=== PATIENT | male | born 1960 | race Caucasian/White ===

== ENCOUNTER 2020-12-02 12:13 | Observation (INO) ==
[2020-12-02] MEDS ORDERED: MIDAZOLAM HCL 1 MG/ML 2ML VIAL ONE ×2 (12:16→15:52)
[2020-12-02] MEDS ORDERED: niCARdipine HCL INJ 2.5 MG/ML 10 ML AMP ONE (12:16)
[2020-12-02] MEDS ORDERED: HEPARIN (PORCINE) 1000 UNIT/ML 10 ML (CATH LAB USE ONLY) ONE ×2 (12:16→15:35)
[2020-12-02] MEDS ORDERED: fentaNYL citrate 100 MCG/2 ML VIAL ONE (12:16)
[2020-12-02] MEDS ORDERED: NITROGLYCERIN/D5W 100MCG/ML 20ML SYR ONE (12:17)
[2020-12-02] MEDS ORDERED: ASPIRIN CHEW 324 MG PO STA (12:19)
--- NOTE | 2020-12-02 12:31 | Emergency Department Note ---
Impression & Plan Unstable angina pectoris, Chest pain, Non-sustained ventricular tachycardia ED Provider Note NAME: CASPER MIGUEL AGE: 60 SEX: M : 1960 ARRIVES VIA: Ambulance INFORMANT: Patient, prehospital personnel ED PROVIDER(S): Dougie Schilling DO CHIEF COMPLAINT: Chest pain HPI: The patient is a 60-year-old male who presented to the emergency department for an evaluation of chest discomfort. The patient states that he started having symptoms initially in September of this year. The patient states that he has been having exertional symptoms while he is doing aerobic activities. The patient denies having any chest pain at this time. He went to see his family doctor who set him up for a stress test. During the initial part of the stress echo the patient started having ectopy and other symptoms. He had nonsustained ventricular tachycardia. He received doses of Lopressor and was sent directly to the emergency department for further evaluation. The patient states he has no chest pain at this time. He states his symptoms are moderate to severe especially with any exertion. The patient is starting to do more and more aero bic activity and start monitoring his heart rate. He is noticed when he does exertional activity and his heart rate goes over 120 bpm is when he starts to notice symptoms. He has a history of high blood pressure as well as high cholesterol. He is being treated for both of these. The patient states he does not have a history of early coronary artery disease but his father did have a heart attack in his 80s. The patient denies having any fever or cough. He denies having any lower extremity swelling. ROS: See above HPI for pertinent positives & negatives. A total of 10 systems reviewed and were otherwise negative. PAST MEDICAL HISTORY: See Below PAST SURGICAL HISTORY: See Below FAMILY HISTORY: See Below SOCIAL HISTORY: See Below HOME MEDICATIONS: See Below ALLERGIES: See Below VITALS: See Below PHYSICAL EXAMINATION: GENERAL: The patient is awake and alert. The patient is very anxious appearing. EYES: The conjunctivae are clear. The pupils are round and reactive. EARS, NOSE, MOUTH AND THROAT: The nose is without any evidence of any deformity. Mucous membranes are moist. Tongue is midline. NECK: The neck is nontender and supple. RESPIRATORY: Normal respiratory effort is noted there is no evidence of wheezing rhonchi or rales CARDIOVASCULAR: Regular rate and rhythm noted there no murmurs rubs or gallops normal S1 normal S2. GASTROINTESTINAL: The abdomen is soft. Abdomen is nontender. MUSCULOSKELETAL/EXTREMITIES: There is no evidence of gross deformity full range of motion is noted in the hips and shoulders. SKIN: There is no obvious evidence of any rash. There are no petechiae, pallor or cyanosis noted. NEUROLOGIC: Patient is awake alert and oriented x 3. MEDICAL DECISION MAKING: The patient is a 60-year-old male who presented to the emergency department for an evaluation of chest pain. The patient started noticing a few months ago that he was having exertional chest pain. He describes it as a burning sensation into his neck. He is very in tune with his body and does significant aerobic activities. He started to notice it all the time and when his heart rate would get over a certain level he would develop the symptoms. He went to see his primary care physician and this was worrisome for coronary syndrome. For this reason he was scheduled for a stress test. He was about to have the stress test today when he started having ventricular ectopy and nonsustained ventricular t achycardia. For this reason the patient was sent to the emergency department immediately by ambulance and was evaluated by the [employer] supervisor. At this time the patient has no symptoms. He is normal sinus rhythm on the monitor. EKG shows no ischemic changes right now. He was treated with aspirin in the emergency department. He was reevaluated multiple times and was placed on the panel monitor. He was felt to be a good candidate for interventional cardiology assessment. He was agreeable with the plan. Triage Nursing notes reviewed. Prior medical records reviewed Vital Signs: reviewed and remarkable for no significant abnormalities Differential diagnosis: Cardiac ischemia, aortic dissection, pulmonary embolism, pneumothorax, pneumonia, pericarditis, myocarditis, esophageal rupture, GERD, cholecystitis, pancreatitis, musculoskeletal, as well as other pathologies. ER treatment provided: See below Diagnostics interpreted by me: ECG: EKG was obtained in the emergency department. My interpretation is normal sinus rhythm at 86 bpm. There is no ectopy. There is no acute ST segment abnormalities noted. This was compared to a tracing from November 172020. No significant changes were noted. Cardiac Monitoring: An order was placed for continuous cardiac monitoring. The monitor shows a rate of 58 beats with sinus bradycardia rhythm. Laboratory studies: As stated above and show below. Imaging studies: See below Consultation(s): 1230: Patient is being evaluated by Dr. Bee for possible cardiac catheterization. Past Med/Surg History Medical History (Updated 12/02/20 @ 17:13 by Dougie Schilling DO) Chronic kidney disease Hyperlipidemia Hypertension Family History Denies family history of Kidney disease Social History Smoking Status: Never smoker Hx Alcohol Use: No Hx Substance Use: No Preferred Language: Korean Homicide Detective Required: No Beliefs That Will Affect Care: None marital status: Current Living Situation: Spouse Current Living Situation Comment: Moved [place] 2019 for senior care & renovate home current occupational status: retired current occupation: retired 2017 from [employer] Other Information That Helps Us Care for You: No other: 3 children. One biologic. Two adopted from [facility] Feels Safe at Home: Yes Safety Concerns: Feels Safe At This Time Assistive Devices: None Allergies Allergies Allergy/AdvReac Type Severity Reaction Status Date / Time No Known Drug Allergies Allergy Unknown Verified 12/02/20 13:27 Home Meds Home Medications Medication Instructions Recorded Confirmed aspirin 81 mg tablet,delayed 81 mg PO HS 10/15/19 12/02/20 release atorvastatin 10 mg tablet 10 mg PO HS tab 10/15/19 12/02/20 fluticasone propionate 50 1 sprays INTNAS DAILY PRN 10/15/19 12/02/20 mcg/actuation nasal spray,suspension valsartan 80 mg tablet 80 mg PO DAILY 10/15/19 12/02/20 diltiazem HCl 240 mg 240 mg PO HS 10/22/19 12/02/20 capsule,extended release 24 hr phenylephrine HCl 10 mg tablet 10 mg PO UD PRN tab 10/22/19 12/02/20 lactobacillus combination no.4 0 mmu cells PO DAILY 12/02/20 12/02/20 [Probiotic] pantoprazole 40 mg PO DAILY 12/02/20 12/02/20 Results & Data (ED) Vital Signs Vital Signs - 24 hr 12/02/20 12:36 12/02/20 12:52 12/02/20 13:00 Temperature 37.3 C Temperature Source Oral Pulse Rate 83 85 73 Pulse Rate from SpO2 Sensor 84 72 Respiratory Rate 18 18 20 Blood Pressure 179/101 H 171/98 H 170/97 H Blood Pressure Mean 127 122 121 Pulse Oximetry 98 100 99 Oxygen Delivery Method Room Air Sepsis Recent Fever Within 48 Hours No Sepsis New/Unexplained Change in Mental Status N/A Sepsis Action Taken by Nursing No Action Required 12/02/20 13:30 12/02/20 14:00 Temperature Temperature Source Pulse Rate 68 70 Pulse Rate from SpO2 Sensor 69 70 Respiratory Rate 18 18 Blood Pressure 157/90 H 137/90 Blood Pressure Mean 112 105 Pulse Oximetry 99 98 Oxygen Delivery Method Sepsis Recent Fever Within 48 Hours Sepsis New/Unexplained Change in Mental Status Sepsis Action Taken by [facility] Medications Current Medication List: was personally reviewed by me Laboratory Data Attestation: I reviewed the patient's lab results. Result diagrams: 12/02/20 12:32 12/02/20 12:32 Lab Results 12/02/20 12/02/20 12/02/20 Range/Units 12:28 12:28 12:32 WBC 5.30 (4.8-10.8) K/uL RBC 4.75 (4.7-6.1) M/uL Hgb 14.6 (14.0-18.0) g/dL POC Hgb (14.0-18.0) g/dl Hct 42.9 (42-52) % POC Hct (42-52) % MCV 90.3 (80-100) fL MCH 30.7 (25-34) pg MCHC 34.0 (32-36) g/dL RDW Std Deviation 40.9 (36.4-46.3) fL RDW Coeff of Aristides 12.4 (11.5-14.5) % Plt Count 223 (130-400) K/uL MPV 9.5 (7.4-10.4) fL Immature Gran % (Auto) 0.0 % Neut % (Auto) 60.8 % Lymph % (Auto) 26.0 % Tift % (Auto) 9.4 % Eos % (Auto) 3.4 % Baso % (Auto) 0.4 % Neut # (Auto) 3.22 (1.4-6.5) K/uL Lymph # (Auto) 1.38 (1.2-3.4) K/uL Tift # (Auto) 0.50 (0.11-0.59) K/uL Eos # (Auto) 0.18 (0-0.5) K/uL Baso # (Auto) 0.02 (0-0.2) K/uL Immature Gran # (Auto) 0.00 (0.00-0.02) K/uL PT (9.0-12.0) Seconds INR (0.9-1.1) APTT (21.0-31.0) Seconds PTT Ratio POC Sodium (135-144) mmol/L Sodium (136-145) mmol/L POC Potassium (3.3-5.0) mmol/L Potassium (3.5-5.1) mmol/L POC Chloride (101-112) mmol/L Chloride (98-107) mmol/L Carbon Dioxide (21-32) mmol/L POC Total CO2 (24-31) mmol/L Anion Gap (3-11) POC Anion Gap (16-25) mmol/L POC BUN (7-18) mg/dl BUN (7-18) mg/dl Creatinine (0.6-1.4) mg/dl POC Creatinine (0.6-1.3) mg/dl Est Cr Clr Drug Dosing ml/min Est GFR ( Amer) Est GFR (Non-Af Amer) BUN/Creatinine Ratio (10-20) Glucose (70-99) mg/dl POC Glucose (other) (70-99) mg/dl Calcium (8.5-10.1) mg/dl POC Ioniz Calcium Anabella (1.12-1.32) mmol/l Total Bilirubin (0.2-1) mg/dl AST (15-37) U/L ALT (12-78) U/L Alkaline Phosphatase (45-117) U/L Troponin I (0-0.045) ng/ml Total Protein (6.4-8.2) gm/dl Albumin (3.4-5.0) gm/dl Globulin (2.5-4.0) gm/dl Albumin/Globulin Ratio (0.9-2) Triglycerides (0-150) mg/dl Cholesterol (0-200) mg/dl LDL Cholesterol Direct mg/dl LDL Cholesterol, Calc VLDL Cholesterol, Calc mg/dl HDL Cholesterol mg/dl Cholesterol/HDL Ratio Lipase (73-393) U/L COVID-19 Eval Order CovFluRsv at [facility] SARS-CoV-2 (PCR) NEGATIVE (Negative) Influenza Type A (PCR) Negative (Neg) Influenza Type B (PCR) Negative (Neg) RSV (RT-PCR) Negative (Neg) 12/02/20 12/02/20 12/02/20 Range/Units 12:32 12:32 12:32 WBC (4.8-10.8) K/uL RBC (4.7-6.1) M/uL Hgb (14.0-18.0) g/dL POC Hgb (14.0-18.0) g/dl Hct (42-52) % POC Hct (42-52) % MCV (80-100) fL MCH (25-34) pg MCHC (32-36) g/dL RDW Std Deviation (36.4-46.3) fL RDW Coeff of Aristides (11.5-14.5) % Plt Count (130-400) K/uL MPV (7.4-10.4) fL Immature Gran % (Auto) % Neut % (Auto) % Lymph % (Auto) % Tift % (Auto) % Eos % (Auto) % Baso % (Auto) % Neut # (Auto) (1.4-6.5) K/uL Lymph # (Auto) (1.2-3.4) K/uL Tift # (Auto) (0.11-0.59) K/uL Eos # (Auto) (0-0.5) K/uL Baso # (Auto) (0-0.2) K/uL Immature Gran # (Auto) (0.00-0.02) K/uL PT 10.9 (9.0-12.0) Seconds INR 1.1 (0.9-1.1) APTT 24.7 (21.0-31.0) Seconds PTT Ratio 0.9 POC Sodium (135-144) mmol/L Sodium 142 (136-145) mmol/L POC Potassium (3.3-5.0) mmol/L Potassium 4.5 (3.5-5.1) mmol/L POC Chloride (101-112) mmol/L Chloride 108 H (98-107) mmol/L Carbon Dioxide 31 (21-32) mmol/L POC Total CO2 (24-31) mmol/L Anion Gap 3.0 (3-11) POC Anion Gap (16-25) mmol/L POC BUN (7-18) mg/dl BUN 18 (7-18) mg/dl Creatinine 1.23 (0.6-1.4) mg/dl POC Creatinine (0.6-1.3) mg/dl Est Cr Clr Drug Dosing 63.3 ml/min Est GFR ( Amer) 74.5 Est GFR (Non-Af Amer) 64.3 BUN/Creatinine Ratio 14.7 (10-20) Glucose 111 H (70-99) mg/dl POC Glucose (other) (70-99) mg/dl Calcium 9.2 (8.5-10.1) mg/dl POC Ioniz Calcium Anabella (1.12-1.32) mmol/l Total Bilirubin 0.6 (0.2-1) mg/dl AST 21 (15-37) U/L ALT 33 (12-78) U/L Alkaline Phosphatase 53 (45-117) U/L Troponin I < 0.015 (0-0.045) ng/ml Total Protein 8.3 H (6.4-8.2) gm/dl Albumin 4.2 (3.4-5.0) gm/dl Globulin 4.1 H (2.5-4.0) gm/dl Albumin/Globulin Ratio 1.0 (0.9-2) Triglycerides 91 (0-150) mg/dl Cholesterol 146 (0-200) mg/dl LDL Cholesterol Direct 80 mg/dl LDL Cholesterol, Calc Not Reportable VLDL Cholesterol, Calc 18 mg/dl HDL Cholesterol 50 mg/dl Cholesterol/HDL Ratio 3 Lipase 219 (73-393) U/L COVID-19 Eval Order SARS-CoV-2 (PCR) (Negative) Influenza Type A (PCR) (Neg) Influenza Type B (PCR) (Neg) RSV (RT-PCR) (Neg) 12/02/20 Range/Units 12:42 WBC (4.8-10.8) K/uL RBC (4.7-6.1) M/uL Hgb (14.0-18.0) g/dL POC Hgb 15.0 (14.0-18.0) g/dl Hct (42-52) % POC Hct 44 (42-52) % MCV (80-100) fL MCH (25-34) pg MCHC (32-36) g/dL RDW Std Deviation (36.4-46.3) fL RDW Coeff of Aristides (11.5-14.5) % Plt Count (130-400) K/uL MPV (7.4-10.4) fL Immature Gran % (Auto) % Neut % (Auto) % Lymph % (Auto) % Tift % (Auto) % Eos % (Auto) % Baso % (Auto) % Neut # (Auto) (1.4-6.5) K/uL Lymph # (Auto) (1.2-3.4) K/uL Tift # (Auto) (0.11-0.59) K/uL Eos # (Auto) (0-0.5) K/uL Baso # (Auto) (0-0.2) K/uL Immature Gran # (Auto) (0.00-0.02) K/uL PT (9.0-12.0) Seconds INR (0.9-1.1) APTT (21.0-31.0) Seconds PTT Ratio POC Sodium 142 (135-144) mmol/L Sodium (136-145) mmol/L POC Potassium 4.2 (3.3-5.0) mmol/L Potassium (3.5-5.1) mmol/L POC Chloride 103 (101-112) mmol/L Chloride (98-107) mmol/L Carbon Dioxide (21-32) mmol/L POC Total CO2 31 (24-31) mmol/L Anion Gap (3-11) POC Anion Gap 14.0 L (16-25) mmol/L POC BUN 19 H (7-18) mg/dl BUN (7-18) mg/dl Creatinine (0.6-1.4) mg/dl POC Creatinine 1.3 (0.6-1.3) mg/dl Est Cr Clr Drug Dosing ml/min Est GFR ( Amer) Est GFR (Non-Af Amer) BUN/Creatinine Ratio (10-20) Glucose (70-99) mg/dl POC Glucose (other) 110 H (70-99) mg/dl Calcium (8.5-10.1) mg/dl POC Ioniz Calcium Anabella 1.25 (1.12-1.32) mmol/l Total Bilirubin (0.2-1) mg/dl AST (15-37) U/L ALT (12-78) U/L Alkaline Phosphatase (45-117) U/L Troponin I (0-0.045) ng/ml Total Protein (6.4-8.2) gm/dl Albumin (3.4-5.0) gm/dl Globulin (2.5-4.0) gm/dl Albumin/Globulin Ratio (0.9-2) Triglycerides (0-150) mg/dl Cholesterol (0-200) mg/dl LDL Cholesterol Direct mg/dl LDL Cholesterol, Calc VLDL Cholesterol, Calc mg/dl HDL Cholesterol mg/dl Cholesterol/HDL Ratio Lipase (73-393) U/L COVID-19 Eval Order SARS-CoV-2 (PCR) (Negative) Influenza Type A (PCR) (Neg) Influenza Type B (PCR) (Neg) RSV (RT-PCR) (Neg) Administered Medications Sodium Chloride (Nss 1000ml) 1,000 mls @ 100 mls/hr IV .Q10H CLAUDETTE Stop: 12/02/20 23:44 Last Admin: 12/02/20 16:37 Dose: 100 mls/hr Documented by: [id number] Discontinued Medications Aspirin (Aspirin Chew 324 Mg) 324 mg PO NOW STA Stop: 12/02/20 12:20 Last Admin: 12/02/20 12:47 Dose: 324 mg Documented by: [id number] Clopidogrel Bisulfate (Clopidogrel Bisulfate 300 Mg Tab) Confirm Administered Dose 600 mg .ROUTE .STK-MED ONE Stop: 12/02/20 16:02 Last Admin: 12/02/20 16:12 Dose: 600 mg Documented by: [id number] Fentanyl Citrate (Fentanyl Citrate 100 Mcg/2 Ml Vial) Confirm Administered Dose 100 mcg .ROUTE .STK-MED ONE Stop: 12/02/20 12:17 Last Increment: 12/02/20 16:05 Dose: 75 mcg Documented by: [id number] Heparin Sodium (Porcine) (Heparin (Porcine) 1000 Unit/Ml 10 Ml (Compensation Consulting Manager Use Only)) Confirm Administered Dose 10,000 units .ROUTE .STK-MED ONE Stop: 12/02/20 12:17 Last Admin: 12/02/20 15:48 Dose: 10,000 units Documented by: [id number] Heparin Sodium (Porcine) (Heparin (Porcine) 1000 Unit/Ml 10 Ml (Compensation Consulting Manager Use Only)) Confirm Administered Dose 10,000 units .ROUTE .STK-MED ONE Stop: 12/02/20 15:36 Last Admin: 12/02/20 16:06 Dose: 4,000 units Documented by: [id number] Heparin Sodium/Sodium Chloride (Heparin In Nss Infusion 1000 Unit/500 Ml (2 U/Ml) Bag) Confirm Administered Dose 3,000 units IV .STK-MED ONE Stop: 12/02/20 12:17 Last Admin: 12/02/20 15:38 Dose: 3,000 units Documented by: [id number] Midazolam HCl (Midazolam Hcl 1 Mg/Ml 2ml Vial) Confirm Administered Dose 2 mg .ROUTE .STK-MED ONE Stop: 12/02/20 12:17 Last Admin: 12/02/20 15:53 Dose: 2 mg Documented by: [id number] Midazolam HCl (Midazolam Hcl 1 Mg/Ml 2ml Vial) Confirm Administered Dose 2 mg .ROUTE .STK-MED ONE Stop: 12/02/20 15:53 Last Increment: 12/02/20 16:06 Dose: 1 mg Documented by: [id number] Nicardipine HCl (Nicardipine Hcl Inj 2.5 Mg/Ml 10 Ml Amp) Confirm Administered Dose 25 mg .ROUTE .STK-MED ONE Stop: 12/02/20 12:17 Last Admin: 12/02/20 15:38 Dose: 25 mg Documented by: [id number] Nitroglycerin/Dextrose (Nitroglycerin/D5w 100mcg/Ml 20ml Syr) Confirm Administered Dose 2,000 mcg .ROUTE .STK-MED ONE Stop: 12/02/20 12:18 Last Admin: 12/02/20 15:38 Dose: 2,000 mcg Documented by: [id number] Imaging Data Radiologist's Impression: Chest X-Ray 12/02/20 12:19 SINGLE VIEW CHEST CLINICAL HISTORY: Atypical chest pain. FINDINGS: An AP, portable, upright chest radiograph is correlated with chest CT dated 09/27/2019. The cardiomediastinal silhouette is unremarkable. The lungs and pleural spaces are clear. No pneumothorax is seen. The bony thorax is grossly intact. IMPRESSION: No active disease in the chest. ACT 112: Negative or not required by law. Electronically signed by: Sahil Cohn M.D. 12/02/2020 12:37 PM Discharge Plan Visit Data Chief Complaint: Chest Pain Stated Complaint: Chest Pain ED Provider: Dougie Schilling Discharge Problem: Unstable angina pectoris, Chest pain, Non-sustained ventricular tachycardia Patient Disposition: Admitted As Inpatient Condition: Good Discharge Instructions Interventions: ED Discharge Assessment Last Done: 12/02/20 14:07 Discharge Problem: Chest pain Qualifiers: Chest pain type: unspecified Qualified Code(s): R07.9 - Chest pain, unspecified
--- NOTE | 2020-12-02 12:38 | XRay Report ---
SINGLE VIEW CHEST CLINICAL HISTORY: Atypical chest pain. FINDINGS: An AP, portable, upright chest radiograph is correlated with chest CT dated 09/27/2019. The c ardiomediastinal silhouette is unremarkable. The lungs and pleural spaces are clear. No pneumothorax is seen. The bony thorax is grossly intact. IMPRESSION: No active disease in the chest. ACT 112: Negative or not required by law. Electronically signed by: Sahil Cohn M.D. 12/02/2020 12:37 PM
[2020-12-02 12:47] LABS: Basophils # (auto) 0.02 K/uL (0-0.2); Basophils % (auto) 0.4 %; Eosinophils # (auto) 0.18 K/uL (0-0.5); Eosinophils % (auto) 3.4 %; Hematocrit (blood only) 42.9 % (42-52); Hemoglobin 14.6 g/dL (14.0-18.0); Lymphocytes # (auto) 1.38 K/uL (1.2-3.4); Mean Corpuscular Hemoglobin 30.7 pg (25-34); Mean Corpuscular Volume 90.3 fL (80-100); Mean Platelet Volume 9.5 fL (7.4-10.4); Monocytes % (auto) 9.4 %; Neutrophils # (auto) 3.22 K/uL (1.4-6.5); Neutrophils % (auto) 60.8 %; Platelet Count 223 K/uL (130-400); RDW Coefficient of Variation 12.4 % (11.5-14.5); RDW Standard Deviation 40.9 fL (36.4-46.3); Red Blood Count 4.75 M/uL (4.7-6.1)
[2020-12-02 12:55] LABS: iSTAT Creatinine 1.3 mg/dl (0.6-1.3); iSTAT Ionized Calcium 1.25 mmol/l (1.12-1.32); iSTAT Potassium 4.2 mmol/L (3.3-5.0)
[2020-12-02 12:55] LABS: INR 1.1 (0.9-1.1); Partial Thromboplastin Ratio 0.9; Partial Thromboplastin Time 24.7 Seconds (21.0-31.0); Prothrombin Time 10.9 Seconds (9.0-12.0)
[2020-12-02 13:01] LABS: Alanine Aminotransferase 33 U/L (12-78); Albumin Level 4.2 gm/dl (3.4-5.0); Aspartate Aminotransferase 21 U/L (15-37); BUN Creatinine Ratio 14.7 (10-20); Blood Urea Nitrogen 18 mg/dl (7-18); Calcium 9.2 mg/dl (8.5-10.1); Carbon Dioxide 31 mmol/L (21-32); Chloride 108 mmol/L (98-107); Creatinine Clr Calc Pharmacy 63.3 ml/min; Est GFR (African American) 74.5; Est GFR (Non-African American) 64.3; Glucose 111 mg/dl (70-99); Lipase 219 U/L (73-393); Potassium 4.5 mmol/L (3.5-5.1); Sodium 142 mmol/L (136-145)
[2020-12-02 13:06] LABS: Alkaline Phosphatase 53 U/L (45-117); Bilirubin,Total 0.6 mg/dl (0.2-1); Globulin 4.1 gm/dl (2.5-4.0); Total Protein 8.3 gm/dl (6.4-8.2); Troponin I < 0.015 ng/ml (0-0.045)
[2020-12-02 13:33] LABS: Influenza A virus by PCR Negative (Neg); Influenza B virus by PCR Negative (Neg); RSV by PCR Negative (Neg); SARS CoV2 RNA(COVID-19) InHosp NEGATIVE (Negative)
[2020-12-02] MEDS ORDERED: CLOPIDOGREL BISULFATE 300 MG TAB ONE (16:01)
--- NOTE | 2020-12-02 16:09 | Post Anesthesia Assessment ---
Date of Service December 02, 2020 Post Sedation Assessment Vital Signs Temp Pulse Resp BP Pulse Ox 12/02/20 14:00 70 18 137/90 98 12/02/20 13:30 68 18 157/90 H 99 12/02/20 13:00 73 20 170/97 H 99 12/02/20 12:52 85 18 171/98 H 100 12/02/20 12:36 99.1 F 83 18 179/101 H 98 Recovery Score Activity: Moves 4 extremities Respiration: Deep Breath/Cough Circulation: +/-20% PreAnes Value Consciousness: Fully Awake Oxygen Saturation: O2 needed for >90% Discharge Sedation Level of Care: Fast Track Phase II Post Sedation Plan On clinical assessment, the patient appears to have tolerated the sedation without complications. Patient is recovering as anticipated. Patient will continue to be monitored by nursing and may be discharged when sedation discharge criteria are met per below protocol. Upon Completions of procedure up to 15 minutes continue every 5 minute vital signs and the P.A.R. score; then discharge to a Phase I or Fast Track to Phase II per the following guidelines: * Discharge Patient to appropriate Phase II area if PAR is 8 or greater or return to pre- procedure baseline. The post - procedure orders will be as directed. * If PAR score is less than 8 or not return to pre-procedure baseline then patient will follow Phase I monitoring till PAR is reached for Phase II. The Phase I may be done in procedure room or may call to secure a Phase I area. * If naloxone or flumazenil are used for reversal, hold in Phase I for continued monitoring from when last reversal dose was given for a minimum of 60 minutes or longer pending the nurse and/or physician discretion of patient condition before discharge to Phase II. Please call the Sedation Physician to re-evaluate and complete post-note for discharge to Phase II area. Do NOT discharge from procedure sedation or Phase 1 until post- sedation evaluation note is complete by procedure /sedation MD Sedation Discharge Instructions to be given to the patient at discharge to home.
--- NOTE | 2020-12-02 16:09 | Pre Anesthesia Assessment ---
Date of Service December 02, 2020 Pre Sedation Assessment Vital Signs Temp Pulse Resp BP Pulse Ox 12/02/20 14:00 70 18 137/90 98 12/02/20 13:30 68 18 157/90 H 99 12/02/20 13:00 73 20 170/97 H 99 12/02/20 12:52 85 18 171/98 H 100 12/02/20 12:36 99.1 F 83 18 179/101 H 98 Cardiovascular RRR, no murmur, no edema Respiratory normal respiratory effort, lungs clear to auscultation Pre-Sedation Airway Assessment Smoking Status: Never smoker Hx Sleep Apnea: No Hx Difficult Intubation: No Short, Thick Neck: No Thyromental Distance: > or= 3.5 Finger Breadths Oral Cavity: + WNL Mallampati Class: II ASA: ASA2 NPO Status Date of Last Intake of Fluids: 12/02/20 Time of Last Intake of Fluids: 07:00 Date of Last Intake of Solid Food: 12/02/20 Time of Last Intake of Solid Foods: 07:00 Procedure Planning Contraindications for Sedation: none Current Medications Reviewed: Yes Notes The planned sedation has been discussed with the patient. Informed Consent was obtained. I have identified the patient, determined the appropriateness of sedation and have assessed the patient immediately prior to the procedure. All medicine(s) and interventions are by my order.
--- NOTE | 2020-12-02 16:11 | Post Operative Brief Note ---
Cardiology Brief Post Op Date of Surgery December 02, 2020 Pre & Post Diagnosis CAD Procedure Cardiac catheterization PCI to LAD Stationary Engineer Apprentice Wolfgang Bee MD Marketing And Public Relations Manager Andrez Estimated Blood Loss 10 Findings Consistent with Post-Op Diagnosis Fluids -- Specimens Specimen Description: -- Anesthesia Type RN Sedation Complications none Disposition Accompanied Patient To Recovery: No Disposition: PCU Overlapping Procedure I was present for: the critical portions of procedure. I was immediately available: during the entire case. Back up surgeon: was not required during procedure.
[2020-12-02] MEDS ORDERED: SODIUM CHLORIDE 0.9% 1000ML 1,000 ML IV SCH (16:15)
[2020-12-02] MEDS ORDERED: ACETAMINOPHEN 325 MG TAB PO PRN (16:15)
[2020-12-02] MEDS ORDERED: NITROGLYCERIN SL 0.4 MG/TAB TAB SL PRN (16:15)
[2020-12-02] MEDS ORDERED: ONDANSETRON INJ 2 MG/ML 2 ML VIAL IV PRN (16:15)
[2020-12-02 16:58] LABS: Chol HDL Ratio 3; Cholesterol 146 mg/dl (0-200); HDL Cholesterol 50 mg/dl; LDL Cholesterol Direct 80 mg/dl; Triglycerides 91 mg/dl (0-150); VLDL Cholesterol 18 mg/dl
--- NOTE | 2020-12-02 18:12 | Cardiac Catheterization ---
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 Cardiac Status Clinical evaluation leading to the procedure CAD Presenation: Positive Stress Test and Unstable angina Anginal Classification: CCS III Heart Failure: No Cardiogenic Shock within 24 Hours: No Cardiac Arrest within 24 Hours: No Imaging Studies Past 6 Months: Yes Stress Studies Past 6 Months: Yes Standard Exercise Test: Yes - Positive and Risk/Extent of Ischemia (High) Diagnostic Physicians Name: Wolfgang Bee MD Status: Urgent Closure Device Percutaneous Entry Location: Radial Closure Device: Radial Band Recommendations: PCI without planned CABG PCI Indication: + Stress Test and Unstable Angina Lesion Segment Name: Proximal LAD Culprit Artery: Yes Stenosis Prior to Rx (%): 80 Chronic Total Occlusion: No IVUS: No FFR: No Pre-Procedure ROSA Flow: 3 Previously Treated Lesion: No Lesion Complexity: High/C Lesion Length (mm): 15 Thrombus Present: No Bifurcation Lesion: Yes Guidewire Across Lesion: Stenosis Post-Procedure (%): 0 Post-Procedure ROSA Flow: 3 Devices(s) Deployed: Yes Yes Intraprocedure Events Significant Disection: No Perforation: No Cardiac Cath Procedure Full Procedure Date December 02, 2020 Pre-Procedure Diagnosis Pre-Procedure Diagnosis: Angina, CAD and Arrhythmia AUC Score AUC Score: 8 Post-Procedure Diagnosis Post-Procedure Diagnosis: Severe CAD, Successful PCI and Normal Intracardiac Pressures Procedure(s) Performed Procedure(s) Performed: Coronary Angiography, Left Heart Cath, PTCA, Drug Eluting Stent and IVUS Animal Control Supervisor Wolfgang Bee MD Photogrammetric Stereo Compiler(s) Andrez Estimated Blood Loss Estimated Blood Loss: 15 Medication(s) Medication(s): Clopidogrel, Fentanyl, Heparin, Lidocaine 1%, Nicardipine, Nitroglycerin and Versed Summary of Findings Indication: 2 months of exertional chest symptoms. Today while awaiting stress test developed sustained monomorphic VT. Echo with inferolateral wall motion abnormality. Access: 6 Fr right radial artery Catheters: [place], EBU 3.5 guide Findings: LM -normal caliber, luminal irregularities LAD -medium caliber, 80% lateproximal stenosis at bifurcation with D1. Mid segment luminal regularities. Distal vessel to apex without significant disease. D1 with 70% ostial and moderate diffuse proximal disease. Circumflex -large caliber vessel, 100% mid segment occlusion. Distal OMs, PLBs fill briskly via left to left and right to left collaterals. RCA -dominant, large caliber vessel, luminal regularities. Gives off right to left collaterals. LVEDP -9 -- PCI -- Antithrombotic therapy: Heparin, clopidogrel Procedure: Left main cannulated with EBU 3.75 guide Attempt made to probe mid circumflex occlusion with ship's pilot 50 wire. Occlusion firm, felt to be chronic. Collar Stay Fuser Tender 50 wire passed across LAD stenosis into distal vessel Whisper wire placed into first diagonal Proximal to mid lesion predilated with 2.5 compliant balloon Proximal diagonal dilated with 2.0 balloon [place] IVUS catheter placed into mid LAD. Pullback revealed focal, mildly calcified disease primarily just at takeoff of diagonal. No significant left main disease. Dilated lesion stented with 3.5 x 18 mm Kraig drug-eluting stent from proximal to mid LAD First diagonal rewired with ship's pilot 50 wire Stent postdilated with 3.5 NC balloon Repeat [place] IVUS showed well apposed, well-expanded stent First diagonal dilated with 2.0 balloon through LAD stent struts IC vasodilators administered for spasm Post procedure ROSA 3 flow, stent well expanded with minimal residual stenosis, mild residual stenosis in D1 with ROSA-3 flow, and no apparent cardiac complications. Arterial Closure: TR band Summary: 1. Severe multivessel coronary artery disease -80% lateproximal LAD at bifurcation with D1. D1 70% ostial/proximal 100% chronic total occlusion of mid circumflex. Brisk left to right, right to left collaterals. 2. Normal intracardiac filling pressure 3. Successful PCI of proximal to mid LAD with single drug-eluting stent (3.5 x 18 mm [place]). -Angioplasty to jailed proximal D1 through stent struts with 2.0 balloon Recommendations: To PCU for continued monitoring Loaded with clopidogrel 600 mg in Radar Mechanic Continue dual-antiplatelet therapy for at least 6 months ASCVD risk factor modification Uptitrate beta-bobbi Consult cardiac Rehab Hemodynamics Rest Ao:: 122/74/100 Final Ao: 133/67/96 LV: 147/9 Recommendations Recommendations: PCI without planned CABG Specimens Specimens: None Radiation Exposure (mGy) 1659 Contrast (mls) 115 Fluids (cc crystalloids) Fluids (cc crystalloids): 145 Drains Drains: none Anesthesia moderate 4951-8896 Procedural Complication(s) None Disposition PCU I attest to the content of the Intraoperative Record and any orders documented therein. Any exceptions are noted below. [facility] Card Cath Procedure Codes Cardiac Catheterization Procedure 1: Cardiovascular Cath Procedures: 83401 Coronaries and LHC (+/-LV) Therapeutic Services & Ancillary Proc Procedure 1: Cardiovascular Tx and Anc Procedures: 72997 IV Ultrasound (Coronary or Graft) Moderate Sedation Procedure 1: Sedation/Anesthesia: 48660 Mod Sedation by the same physician;Init15 Min Child Age 5 & Up Procedure 2: Sedation/Anesthesia: 92584 Mod Sedation by the same physician; Ea [id number] Minutes Stenting Procedure 1: Cardiovascular Stent Procedures: 01300 Perc transcatheter placement of intracoronary stent(s), with ang PG Care Time/CCT Total # of Minutes Spent Total Time Spent with Patient: Total time spent is greater than 50% in coordination of care (as documented) at patient's floor/unit and/or counseling patient:
[2020-12-02] MEDS: METOPROLOL TARTRATE 25 MG TAB PO SCH (20:01)
[2020-12-03 06:22] LABS: Estimated Average Glucose 114 mg/dl; Hemoglobin A1C 5.6 % (4.5-5.6)
--- NOTE | 2020-12-03 06:44 | Electrocardiogram Report ---
Test Reason : Blood Pressure : / mmHG Vent. Rate : 086 BPM Atrial Rate : 086 BPM P-R Int : 176 ms QRS Dur : 104 ms QT Int : 376 ms P-R-T Axes : 056 -37 043 degrees QTc Int : 449 ms Normal sinus rhythm Left axis deviation Incomplete right bundle branch block Abnormal ECG No previous ECGs available Confirmed by Jose Ramon Chiu ([id number]) on 12/03/2020 6:44:09 AM Referred By: REFERRED SELF Confirmed By:Jose Ramon Chiu
[2020-12-03 07:09] LABS: Basophils # (auto) 0.01 K/uL (0-0.2); Basophils % (auto) 0.2 %; Eosinophils # (auto) 0.24 K/uL (0-0.5); Eosinophils % (auto) 4.8 %; Hematocrit (blood only) 41.9 % (42-52); Hemoglobin 14.2 g/dL (14.0-18.0); Lymphocytes # (auto) 1.49 K/uL (1.2-3.4); Mean Corpuscular Hemoglobin 30.6 pg (25-34); Mean Corpuscular Hgb Conc 33.9 g/dL (32-36); Mean Corpuscular Volume 90.3 fL (80-100); Mean Platelet Volume 9.6 fL (7.4-10.4); Monocytes # (auto) 0.57 K/uL (0.11-0.59); Monocytes % (auto) 11.5 %; Neutrophils # (auto) 2.65 K/uL (1.4-6.5); Neutrophils % (auto) 53.5 %; Platelet Count 202 K/uL (130-400); RDW Coefficient of Variation 12.7 % (11.5-14.5); RDW Standard Deviation 41.9 fL (36.4-46.3); Red Blood Count 4.64 M/uL (4.7-6.1); White Blood Count 4.96 K/uL (4.8-10.8)
[2020-12-03 07:47] LABS: BUN Creatinine Ratio 12.5 (10-20); Calcium 8.7 mg/dl (8.5-10.1); Creatinine Clr Calc Pharmacy 66.6 ml/min; Est GFR (African American) 79.2; Est GFR (Non-African American) 68.3; Potassium 3.9 mmol/L (3.5-5.1)
[2020-12-03] MEDS: METOPROLOL TARTRATE 25 MG TAB PO SCH (08:41)
[2020-12-03] MEDS ORDERED: ATORVASTATIN 40 MG TAB PO SCH (09:00)
[2020-12-03] MEDS ORDERED: PANTOprazole 40 MG TAB PO SCH (09:00)
[2020-12-03] MEDS ORDERED: VALSARTAN 80 MG TAB PO SCH (09:00)
[2020-12-03] MEDS ORDERED: ASPIRIN 81 MG ECTAB PO SCH (09:00)
[2020-12-03] MEDS ORDERED: CLOPIDOGREL BISULFATE 75 MG TAB PO SCH (12:00)
--- NOTE | 2020-12-04 00:20 | Discharge Summary ---
Date of Service December 04, 2020 Admission HPI Per Admitting Provider Mr. Grimaldo is a very pleasant 60-year-old man with recent accelerating exertional chest/neck pain. Was to undergo exercise stress echocardiogram today but developed monomorphic VT prior to procedure well and monitor. Converted back to sinus rhythm after IV Lopressor. Resting echocardiogram showed inferolateral wall motion abnormality. Sent by his glue maker bone Dr. Glover for urgent cardiac catheterization. Discharge Data Consultations 12/02/20 12:32 Consult Cardiac Catheterization Stat 12/02/20 16:19 Consult Cardiac Rehabilitation Routine Procedures Performed Operation Date: 12/02/20 14:00 Actual Procedures p Cath, Left with Cors and Vent - Farzad Bee MD s Cineradiography w/Routine Exam - Farzad Bee MD s Drug Eluting Stent SGl Vessel - Farzad Bee MD s POBA SGL Vessel - Farzad Bee MD s IVUS Coronary Single Vessel - Farzad Bee MD Hospital Course (1) CAD (coronary artery disease): Cardiac catheterization revealed severe two-vessel disease with a chronically occluded circumflex with brisk left to left and right to left collaterals. Also with an 80% lateproximal LAD stenosis at bifurcation with D1. D1 small to moderate caliber with 70% ostial stenosis. Underwent PCI to LAD with a single drug-eluting stent (3.5 x 18 mm [place]) along with angioplasty to jailed proximal D1. Procedure uncomplicated. Admitted to telemetry overnight for observation. Had no additional ventricular ectopy. Had no chest pain. No access site complications. Discharged home on hospital day 2 on DAPT with aspirin, clopidogrel. Diltiazem switched to metoprolol. Increased atorvastatin to 80 mg daily. He will follow-up with Dr. Glover in 2 weeks with repeat echo, ambulatory monitoring. Discharge Instructions Home Medications aspirin 81 mg tablet,delayed release 81 mg PO HS 10/15/19 [History Confirmed 12/02/20] fluticasone propionate 50 mcg/actuation nasal spray,suspension 1 sprays INTNAS DAILY PRN 10/15/19 [History Confirmed 12/02/20] valsartan 80 mg tablet 80 mg PO DAILY 10/15/19 [History Confirmed 12/02/20] pantoprazole 40 mg PO DAILY 12/02/20 [History Confirmed 12/02/20] atorvastatin 80 mg PO QAM #30 tab 12/03/20 [Rx] clopidogrel 75 mg PO QAM #30 tab 12/03/20 [Rx] metoprolol tartrate 25 mg PO BID #60 tab 12/03/20 [Rx] nitroglycerin [Nitrostat] 0.4 mg SUBLINGUAL PRN PRN #30 tab 12/03/20 [Rx] Coding Level of Care Code 33723 OBS Care - Discharge Diagnoses CAD (coronary artery disease) I25.10
--- NOTE | 2020-12-04 05:59 | Electrocardiogram Report ---
Test Reason : Blood Pressure : / mmHG Vent. Rate : 049 BPM Atrial Rate : 049 BPM P-R Int : 192 ms QRS Dur : 104 ms QT Int : 470 ms P-R-T Axes : 005 -21 -55 degrees QTc Int : 424 ms Sinus bradycardia Incomplete right bundle branch block Nonspecific T wave abnormality T wave abnormality, consider anterolateral ischemia Abnormal ECG When compared with ECG of 02-DEC-2020 12:23, Vent. rate has decreased BY 37 BPM Nonspecific T wave abnormality, worse in Inferior leads T wave inversion now evident in Anterolateral leads Confirmed by Jose Ramon Chiu ([id number]) on 12/04/2020 5:58:36 AM Referred By: REFERRED SELF Confirmed By:Jose Ramon Chiu
== END 2020-12-03 12:52 | disposition home or self-care (01) ==
LOC: 2S 12:13 → ED 12:13 → 2S 14:07

== ENCOUNTER 2020-12-05 20:25 | Observation (INO) ==
[2020-12-05 21:41] LABS: Basophils # (auto) 0.01 K/uL (0-0.2); Basophils % (auto) 0.2 %; Eosinophils # (auto) 0.23 K/uL (0-0.5); Eosinophils % (auto) 4.5 %; Hematocrit (blood only) 40.1 % (42-52); Hemoglobin 13.6 g/dL (14.0-18.0); Lymphocytes % (auto) 29.6 %; Mean Corpuscular Hemoglobin 31.1 pg (25-34); Mean Corpuscular Hgb Conc 33.9 g/dL (32-36); Mean Corpuscular Volume 91.6 fL (80-100); Mean Platelet Volume 9.7 fL (7.4-10.4); Monocytes # (auto) 0.55 K/uL (0.11-0.59); Monocytes % (auto) 10.9 %; Neutrophils # (auto) 2.77 K/uL (1.4-6.5); Neutrophils % (auto) 54.8 %; Platelet Count 215 K/uL (130-400); RDW Coefficient of Variation 12.5 % (11.5-14.5); RDW Standard Deviation 41.6 fL (36.4-46.3); Red Blood Count 4.38 M/uL (4.7-6.1); White Blood Count 5.06 K/uL (4.8-10.8)
[2020-12-05 21:49] LABS: BUN Creatinine Ratio 14.6 (10-20); Calcium 9.4 mg/dl (8.5-10.1); Creatinine Clr Calc Pharmacy 65.5 ml/min; Est GFR (African American) 77.6; Est GFR (Non-African American) 66.9
--- NOTE | 2020-12-05 21:55 | Emergency Department Note ---
Impression & Plan Heart palpitations ED Provider Note INFORMANT: Patient ED PROVIDER(S): Antoine Frank MD CHIEF COMPLAINT: Palpitations PLAN: Disposition: Admitted Condition: Good Outpatient prescription management: none Referral: None MEDICAL DECISION MAKING: Patient presented emerged from noting palpitations. He was feeling poorly and EMS was called. They arrived to find the patient having bigeminy. He noted he was starting to feel better on their arrival and by time he was loaded in the ambulance he has bigeminy resolved and he was in a normal sinus rhythm. The patient had blood work obtained and his CBC and chemistry panel are unremarkable. The patient did have a mildly elevated troponin. In light of his recent cardiac event, nonsustained V. tach, elevated troponin and the symptoms tonight further management in the hospital was felt to be appropriate. I did consult with Dr. Aguilar of cardiology. He agreed with the plan of hospital admission and observation due to the multiple factors noted above. consultation was made with Dr. Jax Blakely of the [facility] service. Patient was evaluated in the ER for further management. Triage Nursing notes reviewed and agree them. Additional history obtained from patient's Prior medical records reviewed regarding his prior ER visit and cardiac catheterization Vital Signs: reviewed and remarkable for no significant abnormalities Differential diagnosis: Premature contractions, electrolyte abnormality, cardiac dysrhythmia, ACS, th yroid dysfunction, pulmonary embolism, infection, gastrointestinal, as well as other pathologies. Diagnostics interpreted by me: ECG: Rate:65 Rhythm:Normal sinus [place]:Normal QRS:IRBBB ST segements:No elevation or depression Other:No PACs or PVCs Cardiac Monitoring: Cardiac monitoring ordered by me: The patient was placed on continuous cardiac monitoring and observed. It revealed a normal sinus rhythm at 60 beats per minute without ectopy or evidence of dysrhythmia. Consultation(s): Cardiology, hospitalist HPI: The patient is a 60 year old male who presents to the Emergency Room with complaints of palpitations and irregular heartbeat. This started today and is currently resolved. The patient also notes the following associated symptoms, none. The patient was given ASA relieving factors. Current pain is rated as 0/10. Patient was having exertional throat burning. He was referred for evaluation which included a stress echo. Prior to that test he had developed nonsustained V. tach. He was sent to the ER. Pt had a stent placed [address] Bee for LAD. Pt denies LOC, headache, fevers, chills, diaphoresis, visual changes, neck pain, chest pain, breathing difficulties, nausea, vomiting, abdominal pain, back pain, melena, hematochezia, urinary symptoms, numbness, weakness, lymphadenopathy, rash, or other complaints. ROS: See above HPI for pertinent positives & negatives. A total of 10 systems reviewed and were otherwise negative. PAST MEDICAL HISTORY:See Below , CAD PAST SURGICAL HISTORY:See Below,coronary stenting FAMILY HISTORY:See Below SOCIAL HISTORY:See Below, HOME MEDICATIONS:See Below ALLERGIES:See Below VITALS:See Below PHYSICAL EXAMINATION: GENERAL: Awake, alert, well-appearing, in no distress HENT: Normocephalic, atraumatic. Oropharynx unremarkable. EYES: Normal conjunctiva. Sclera non-icteric. NECK: Inspection normal. Non-tender. Supple. No nuchal rigidity. FROM. No masses. RESPIRATORY: Clear to auscultation. No wheezes. No rales. Normal respiratory effort. CARDIAC: Normal rate. Normal rhythm. No murmurs. No rubs. Extremities warm and well perfused. Pulses equal. No JVD. GI: Soft, non-distended. No tenderness to palpation. No rebound or guarding. No masses. RECTAL: Deferred. MUSCULOSKELETAL: Atraumatic. Chest examination reveals no tenderness. The back is symmetrical on inspection without obvious abnormality. There is no CVA tenderness to palpation. No joint edema. LOWER EXTREMITIES: Calves are equal size bilaterally and non-tender. No edema. No discoloration. NEURO: Normal sensorium. No sensory or motor deficits noted. SKIN: No rash or jaundice noted. Antoine Frank MD Past Med/Surg History Medical History (Updated 12/05/20 @ 21:50 by Antoine Frank MD) Chronic kidney disease Hyperlipidemia Hypertension Family History Denies family history of Kidney disease Social History Smoking Status: Never smoker Hx Alcohol Use: No Hx Substance Use: No Preferred Language: Marshallese Prison Keeper Required: No Beliefs That Will Affect Care: None marital status: Current Living Situation: Spouse Current Living Situation Comment: Moved from [place] to [place] 2018 for correction & renovate home current occupational status: retired current occupation: retired 2017 from [employer] other: 3 children. One biologic. Two adopted from [facility] Feels Safe at Home: Yes Assistive Devices: None Allergies Allergies Allergy/AdvReac Type Severity Reaction Status Date / Time No Known Drug Allergies Allergy Unknown Verified 12/05/20 22:35 Home Meds Home Medications Medication Instructions Recorded Confirmed aspirin 81 mg tablet,delayed 81 mg PO QAM 10/15/19 12/05/20 release fluticasone propionate 50 1 sprays INTNAS DAILY PRN 10/15/19 12/05/20 mcg/actuation nasal spray,suspension valsartan 80 mg tablet 80 mg PO DAILY 10/15/19 12/05/20 pantoprazole 40 mg PO DAILY 12/02/20 12/05/20 aspirin [Aspir-Low] 324 mg PO .TODAY 12/05/20 12/05/20 Previous Rx's Medication Instructions Recorded atorvastatin 80 mg PO QAM #30 tab 12/03/20 clopidogrel 75 mg PO QAM #30 tab 12/03/20 metoprolol tartrate 25 mg PO BID #60 tab 12/03/20 nitroglycerin [Nitrostat] 0.4 mg SUBLINGUAL PRN PRN #30 tab 12/03/20 Results & Data (ED) Vital Signs Vital Signs - 24 hr 12/05/20 20:33 12/05/20 20:45 12/05/20 20:46 Temperature 36.8 C Temperature Source Oral Pulse Rate 69 62 Pulse Rate [Right Finger] 64 Pulse Rate from SpO2 Sensor 62 Pulse Rhythm [Right Finger] Regular Pulse Strength [Right Finger] Normal Respiratory Rate 18 17 19 Respiratory Effort / Characteristics Non-Labored Respiratory Depth Normal Respiratory Pattern Regular Blood Pressure 149/81 H 152/88 H Blood Pressure [Right Arm] 152/88 H Blood Pressure Mean 103 109 Blood Pressure Mean [Right Arm] 109 Blood Pressure Position [Right Arm] Sitting Pulse Oximetry 97 98 100 Oxygen Delivery Method Room Air Room Air Oxygen Flow Rate 100 Sepsis Recent Fever Within 48 Hours No Sepsis New/Unexplained Change in Mental Status No Sepsis Action Taken by Nursing No Action Required 12/05/20 20:59 12/05/20 21:00 12/05/20 21:10 Temperature Temperature Source Pulse Rate 61 61 59 L Pulse Rate [Right Finger] Pulse Rate from SpO2 Sensor 61 61 60 Pulse Rhythm [Right Finger] Pulse Strength [Right Finger] Respiratory Rate 15 19 20 Respiratory Effort / Characteristics Respiratory Depth Respiratory Pattern Blood Pressure 140/88 Blood Pressure [Right Arm] Blood Pressure Mean 105 Blood Pressure Mean [Right Arm] Blood Pressure Position [Right Arm] Pulse Oximetry 99 99 99 Oxygen Delivery Method Oxygen Flow Rate Sepsis Recent Fever Within 48 Hours Sepsis New/Unexplained Change in Mental Status Sepsis Action Taken by Nursing 12/05/20 21:15 12/05/20 21:20 12/05/20 21:30 Temperature Temperature Source Pulse Rate 61 67 69 Pulse Rate [Right Finger] Pulse Rate from SpO2 Sensor 60 65 69 Pulse Rhythm [Right Finger] Pulse Strength [Right Finger] Respiratory Rate 14 19 22 Respiratory Effort / Characteristics Respiratory Depth Respiratory Pattern Blood Pressure 134/79 128/80 Blood Pressure [Right Arm] Blood Pressure Mean 97 96 Blood Pressure Mean [Right Arm] Blood Pressure Position [Right Arm] Pulse Oximetry 99 99 98 Oxygen Delivery Method Oxygen Flow Rate Sepsis Recent Fever Within 48 Hours Sepsis New/Unexplained Change in Mental Status Sepsis Action Taken by Nursing 12/05/20 21:40 12/05/20 21:45 12/05/20 21:50 Temperature Temperature Source Pulse Rate 60 60 60 Pulse Rate [Right Finger] Pulse Rate from SpO2 Sensor 60 59 L 60 Pulse Rhythm [Right Finger] Pulse Strength [Right Finger] Respiratory Rate 17 17 15 Respiratory Effort / Characteristics Respiratory Depth Respiratory Pattern Blood Pressure 126/77 Blood Pressure [Right Arm] Blood Pressure Mean 93 Blood Pressure Mean [Right Arm] Blood Pressure Position [Right Arm] Pulse Oximetry 97 99 98 Oxygen Delivery Method Oxygen Flow Rate Sepsis Recent Fever Within 48 Hours Sepsis New/Unexplained Change in Mental Status Sepsis Action Taken by Nursing Laboratory Data Result diagrams: 12/05/20 20:45 12/05/20 20:45 Lab Results 12/05/20 12/05/20 12/05/20 Range/Units 20:45 20:45 22:19 WBC 5.06 (4.8-10.8) K/uL RBC 4.38 L (4.7-6.1) M/uL Hgb 13.6 L (14.0-18.0) g/dL Hct 40.1 L (42-52) % MCV 91.6 (80-100) fL MCH 31.1 (25-34) pg MCHC 33.9 (32-36) g/dL RDW Std Deviation 41.6 (36.4-46.3) fL RDW Coeff of Aristides 12.5 (11.5-14.5) % Plt Count 215 (130-400) K/uL MPV 9.7 (7.4-10.4) fL Immature Gran % (Auto) 0.0 % Neut % (Auto) 54.8 % Lymph % (Auto) 29.6 % [place] % (Auto) 10.9 % Eos % (Auto) 4.5 % Baso % (Auto) 0.2 % Neut # (Auto) 2.77 (1.4-6.5) K/uL Lymph # (Auto) 1.50 (1.2-3.4) K/uL [place] # (Auto) 0.55 (0.11-0.59) K/uL Eos # (Auto) 0.23 (0-0.5) K/uL Baso # (Auto) 0.01 (0-0.2) K/uL Immature Gran # (Auto) 0.00 (0.00-0.02) K/uL Sodium 140 (136-145) mmol/L Potassium 4.0 (3.5-5.1) mmol/L Chloride 106 (98-107) mmol/L Carbon Dioxide 30 (21-32) mmol/L Anion Gap 4.0 (3-11) BUN 17 (7-18) mg/dl Creatinine 1.19 (0.6-1.4) mg/dl Est Cr Clr Drug Dosing 65.5 ml/min Est GFR ( Amer) 77.6 Est GFR (Non-Af Amer) 66.9 BUN/Creatinine Ratio 14.6 (10-20) Glucose 115 H (70-99) mg/dl Calcium 9.4 (8.5-10.1) mg/dl Magnesium 2.0 (1.8-2.4) mg/dl Total Bilirubin 0.6 (0.2-1) mg/dl AST 18 (15-37) U/L ALT 27 (12-78) U/L Alkaline Phosphatase 48 (45-117) U/L Troponin I 0.425 H* (0-0.045) ng/ml Total Protein 7.5 (6.4-8.2) gm/dl Albumin 4.0 (3.4-5.0) gm/dl Globulin 3.5 (2.5-4.0) gm/dl Albumin/Globulin Ratio 1.1 (0.9-2) TSH 2.050 (0.300-4.500) uIu/ml COVID-19 Eval Order CovFluRsv at [facility] SARS-CoV-2 (PCR) (Negative) Influenza Type A (PCR) (Neg) Influenza Type B (PCR) (Neg) RSV (RT-PCR) (Neg) 12/05/20 Range/Units 22:19 WBC (4.8-10.8) K/uL RBC (4.7-6.1) M/uL Hgb (14.0-18.0) g/dL Hct (42-52) % MCV (80-100) fL MCH (25-34) pg MCHC (32-36) g/dL RDW Std Deviation (36.4-46.3) fL RDW Coeff of Aristides (11.5-14.5) % Plt Count (130-400) K/uL MPV (7.4-10.4) fL Immature Gran % (Auto) % Neut % (Auto) % Lymph % (Auto) % [place] % (Auto) % Eos % (Auto) % Baso % (Auto) % Neut # (Auto) (1.4-6.5) K/uL Lymph # (Auto) (1.2-3.4) K/uL [place] # (Auto) (0.11-0.59) K/uL Eos # (Auto) (0-0.5) K/uL Baso # (Auto) (0-0.2) K/uL Immature Gran # (Auto) (0.00-0.02) K/uL Sodium (136-145) mmol/L Potassium (3.5-5.1) mmol/L Chloride (98-107) mmol/L Carbon Dioxide (21-32) mmol/L Anion Gap (3-11) BUN (7-18) mg/dl Creatinine (0.6-1.4) mg/dl Est Cr Clr Drug Dosing ml/min Est GFR ( Amer) Est GFR (Non-Af Amer) BUN/Creatinine Ratio (10-20) Glucose (70-99) mg/dl Calcium (8.5-10.1) mg/dl Magnesium (1.8-2.4) mg/dl Total Bilirubin (0.2-1) mg/dl AST (15-37) U/L ALT (12-78) U/L Alkaline Phosphatase (45-117) U/L Troponin I (0-0.045) ng/ml Total Protein (6.4-8.2) gm/dl Albumin (3.4-5.0) gm/dl Globulin (2.5-4.0) gm/dl Albumin/Globulin Ratio (0.9-2) TSH (0.300-4.500) uIu/ml COVID-19 Eval Order SARS-CoV-2 (PCR) NEGATIVE (Negative) Influenza Type A (PCR) Negative (Neg) Influenza Type B (PCR) Negative (Neg) RSV (RT-PCR) Negative (Neg) Discharge Plan Visit Data Chief Complaint: Cardiac Assessment Stated Complaint: CARDIAC ASSESSMENT ED Provider: Antoine Frank Discharge Problem: Heart palpitations Forms Stand Alone Forms: [facility] Prescriptions Prescriptions: No Action aspirin 81 mg tablet,delayed release (DR/EC) 81 mg PO QAM RF: 0 fluticasone propionate [Flonase Allergy Relief] 50 mcg/actuation spray,suspension 1 sprays INTNAS DAILY PRN (Reason: allergies) RF: 0 valsartan 80 mg tablet 80 mg PO DAILY RF: 0 pantoprazole 40 mg tablet,delayed release (DR/EC) 40 mg PO DAILY RF: 0 clopidogrel 75 mg Tablet 75 mg PO QAM Qty: 30 RF: 6 atorvastatin 80 mg tablet 80 mg PO QAM Qty: 30 RF: 6 metoprolol tartrate 25 mg Tablet 25 mg PO BID Qty: 60 RF: 6 nitroglycerin [Nitrostat] 0.4 mg Tablet, Sublingual 0.4 mg sublingual PRN PRN (Reason: chest pain) Qty: 30 RF: 1 aspirin [Aspir-Low] 81 mg Tablet,Delayed Release (Dr/Ec) 324 mg PO .TODAY RF: 0
[2020-12-05 22:08] LABS: Albumin Globulin Ratio 1.1 (0.9-2); Bilirubin,Total 0.6 mg/dl (0.2-1); Globulin 3.5 gm/dl (2.5-4.0); Thyroid Stimulating Hormone 2.05 uIu/ml (0.300-4.500); Total Protein 7.5 gm/dl (6.4-8.2); Troponin I 0.425 ng/ml (0-0.045)
[2020-12-05 23:58] LABS: Influenza A virus by PCR Negative (Neg); Influenza B virus by PCR Negative (Neg); RSV by PCR Negative (Neg); SARS CoV2 RNA(COVID-19) InHosp NEGATIVE (Negative)
--- NOTE | 2020-12-06 00:35 | History & Physical Report ---
Date of Service December 06, 2020 Assessment & Plan (1) Heart palpitations: 60-year-old male with a past medical history of recent coronary artery stent, hyperlipidemia, hypertension, CKD admitted for observation following multiple episodes of abnormal heart rhythms. Palpitations Most likely aberrant arrhythmias following stenting procedure. given 325mg ASA en route to ER. Most likely controlled somewhat by metoprolol that was initiated after stenting We will continue to monitor for arrhythmias on telemetry Appreciate cardio's continuing input on management of this case Elevated troponin - Pre-procedure troponin on 12/02 <0.015, today 0.425 - repeats ordered to trend - could be decreasing troponin from procedure as opposed to new bump - EKG in ambulance showing bigeminy, repeat here showing continued RBBB without ST changes CAD s/p Stent placement Continue metoprolol, aspirin, Plavix - AM BMP, Mag with goal K>4, Mag >2 GERD - Pantoprazole switched to famotidine 40 mg daily given interaction between pantoprazole and plavix HTN - cont losartan 80 daily CKD - Cr 1.19, GFR 66, at baseline - daily BMP DVT ppx: ASA, plavix. ambulate FEN/GI: heart healthy, low sodium Code Status: full code Dispo: PCU This note was dictated using [employer] dictation and may include syntax or grammatical errors. Please send a message if you have any questions clarifying the contents of this note. (2) CAD (coronary artery disease): (3) Hyperlipidemia: (4) Hypertension: (5) Chronic kidney disease: (6) H/O heart artery stent: History of Present Illness 60-year-old male past medical history coronary artery disease hyperlipidemia, hypertension, CKD, recent placement of cardiac stents to LAD on December 02, 2020. Presents to the emergency department via ambulance today for repeated episodes of palpitations and abnormal heart rhythms. Brief summation, Alonzo originally started feeling abnormal burning sensations in his throat when exercising and having his heart rate average approximately 120 bpm. He relayed this to his primary care provider who recommended he see GI given the likelihood of it being GERD. When evaluated by GI he was advised to be seen by cardiology given that the symptoms occurred primarily during exertion. He then had an appointment with cardiology to get a stress echocardiogram performed however before the echo could be initiated he started to feel the abnormal sensations in his chest and burning in his throat while only on an EKG. States that he saw the EKG waves become wider and wider and more providers become involved and concerned. He was taken to the [facility] where he was found to have an 80% blockage of his LAD getting a stent and ballooning distal to that stent placement (this was on December 02). On December 04 he followed up with his sports announcer Dr. Glover to get an outpatient echocardiogram to evaluate his heart function was told that his heart was functioning well after stent placement. At that time they also placed an event monitor to evaluate the abnormal rhythms and palpitations that he feels. Today he came in via ambulance because he had repeated sensations of palpitations in his chest and "feeling his heartbeat in his abdomen "as well as severe anxiety surrounding these palpitations and sensations. He states that he has had a few repeat episodes while he has been in the emergency department during which she has noted that his blood pressure and heart rate both elevated but then have come back down much more quickly than they did at home. He does attest to having a history of anxiety for which he was treated with Xanax. He says that approximately 10 years ago he was on BuSpar but that did not help much. Primary Care Provider: Niranjan Beltran Allergies Allergy/AdvReac Type Severity Reaction Status Date / Time No Known Drug Allergies Allergy Unknown Verified 12/05/20 22:35 Home Medications Medication Instructions Recorded Confirmed Type aspirin 81 mg tablet,delayed 81 mg PO QAM 10/15/19 12/05/20 History release fluticasone propionate 50 1 sprays INTNAS DAILY PRN 10/15/19 12/05/20 History mcg/actuation nasal spray,suspension valsartan 80 mg tablet 80 mg PO DAILY 10/15/19 12/05/20 History pantoprazole 40 mg PO DAILY 12/02/20 12/05/20 History atorvastatin 80 mg PO QAM #30 tab 12/03/20 12/05/20 Rx clopidogrel 75 mg PO QAM #30 tab 12/03/20 12/05/20 Rx nitroglycerin [Nitrostat] 0.4 mg SUBLINGUAL PRN PRN #30 tab 12/03/20 12/05/20 Rx metoprolol tartrate 37.5 mg PO BID #60 tab 12/06/20 12/05/20 Rx Past Med/Surg History Medical History Chronic kidney disease Hyperlipidemia Hypertension Surgical History H/O heart artery stent 80% blockage LAD, 12/02/20 Family History Denies family history of Kidney disease Social History Smoking Status: Never smoker Hx Alcohol Use: Yes Alcohol type: beer Hx Substance Use: No Preferred Language: Macedonian Complex Director Required: No Beliefs That Will Affect Care: None marital status: Current Living Situation: Family Current Living Situation Comment: Moved from [place] to [place] 2018 for fpc & renovate home current occupational status: retired current occupation: retired 2017 from [employer] other: 3 children. One biologic. Two adopted from [facility] Feels Safe at Home: Yes Assistive Devices: None Review of Systems Constitutional: no fever, no chills, no body aches, no fatigue, no malaise and no weakness Respiratory: no cough, no dyspnea, no pain on inspiration and no sputum production Cardiovascular: + palpitations; no chest pain, no chest pain with activity, no dyspnea at rest, no lightheadedness, no edema and no calf pain Gastrointestinal: + heartburn; no abdominal pain, no nausea, no vomiting, no constipation and no diarrhea/loose stools Neurologic: no tingling and no numbness Physical Exam Physical Exam: Constitutional: in no apparent distress, sitting comfortably in bed. Eyes: EOMI, pupils equal and reactive bilaterally, no scleral icterus Cardiac: RRR, no murmurs, gallops or rubs. Normal S1, S2 Pulm: CTA BL, no wheezes, rhonchi, crackles or rubs, moving air well throughout both lungs Abd: soft, nontender, nondistended, normal bowel sounds, no rebound or guarding Extremities: 2+ peripheral pulses, no edema Neuro: no focal deficits, moving all 4 limbs, A&Ox3 Psych: anxious appearing, talkative Results & Data Results & Data ([facility]) Vital Signs (Past 12 Hours) Vital Signs Temp Pulse Pulse Resp BP BP Pulse Ox 12/06/20 00:15 65 14 140/80 99 12/06/20 00:00 66 22 145/80 H 100 12/05/20 23:45 59 L 19 145/80 H 99 12/05/20 23:30 71 14 163/82 H 99 12/05/20 23:15 56 L 13 133/82 99 12/05/20 23:00 54 L 16 141/82 H 98 12/05/20 21:50 60 15 98 12/05/20 21:45 60 17 126/77 99 12/05/20 21:40 60 17 97 12/05/20 21:30 69 22 128/80 98 12/05/20 21:20 67 19 99 12/05/20 21:15 61 14 134/79 99 12/05/20 21:10 59 L 20 99 12/05/20 21:00 61 19 140/88 99 12/05/20 20:59 61 15 99 12/05/20 20:46 64 19 152/88 H 100 12/05/20 20:45 62 17 152/88 H 98 12/05/20 20:33 36.8 C 69 18 149/81 H 97 Laboratory Results WBC 5.06 K/uL (4.8-10.8) 12/05/20 20:45 RBC 4.38 M/uL (4.7-6.1) L 12/05/20 20:45 Hgb 13.6 g/dL (14.0-18.0) L 12/05/20 20:45 Hct 40.1 % (42-52) L 12/05/20 20:45 MCV 91.6 fL (80-100) 12/05/20 20:45 MCH 31.1 pg (25-34) 12/05/20 20:45 MCHC 33.9 g/dL (32-36) 12/05/20 20:45 RDW Std Deviation 41.6 fL (36.4-46.3) 12/05/20 20:45 RDW Coeff of Aristides 12.5 % (11.5-14.5) 12/05/20 20:45 Plt Count 215 K/uL (130-400) 12/05/20 20:45 MPV 9.7 fL (7.4-10.4) 12/05/20 20:45 Immature Gran % (Auto) 0.0 % 12/05/20 20:45 Neut % (Auto) 54.8 % 12/05/20 20:45 Lymph % (Auto) 29.6 % 12/05/20 20:45 [place] % (Auto) 10.9 % 12/05/20 20:45 Eos % (Auto) 4.5 % 12/05/20 20:45 Baso % (Auto) 0.2 % 12/05/20 20:45 Neut # (Auto) 2.77 K/uL (1.4-6.5) 12/05/20 20:45 Lymph # (Auto) 1.50 K/uL (1.2-3.4) 12/05/20 20:45 [place] # (Auto) 0.55 K/uL (0.11-0.59) 12/05/20 20:45 Eos # (Auto) 0.23 K/uL (0-0.5) 12/05/20 20:45 Baso # (Auto) 0.01 K/uL (0-0.2) 12/05/20 20:45 Immature Gran # (Auto) 0.00 K/uL (0.00-0.02) 12/05/20 20:45 Sodium 140 mmol/L (136-145) 12/05/20 20:45 Potassium 4.0 mmol/L (3.5-5.1) 12/05/20 20:45 Chloride 106 mmol/L (98-107) 12/05/20 20:45 Carbon Dioxide 30 mmol/L (21-32) 12/05/20 20:45 Anion Gap 4.0 (3-11) 12/05/20 20:45 BUN 17 mg/dl (7-18) 12/05/20 20:45 Creatinine 1.19 mg/dl (0.6-1.4) 12/05/20 20:45 Est Cr Clr Drug Dosing 65.5 ml/min 12/05/20 20:45 Est GFR ( Amer) 77.6 12/05/20 20:45 Est GFR (Non-Af Amer) 66.9 12/05/20 20:45 BUN/Creatinine Ratio 14.6 (10-20) 12/05/20 20:45 Glucose 115 mg/dl (70-99) H 12/05/20 20:45 Calcium 9.4 mg/dl (8.5-10.1) 12/05/20 20:45 Magnesium 2.0 mg/dl (1.8-2.4) 12/05/20 20:45 Total Bilirubin 0.6 mg/dl (0.2-1) 12/05/20 20:45 AST 18 U/L (15-37) 12/05/20 20:45 ALT 27 U/L (12-78) 12/05/20 20:45 Alkaline Phosphatase 48 U/L (45-117) 12/05/20 20:45 Troponin I 0.425 ng/ml (0-0.045) H* 12/05/20 20:45 Total Protein 7.5 gm/dl (6.4-8.2) 12/05/20 20:45 Albumin 4.0 gm/dl (3.4-5.0) 12/05/20 20:45 Globulin 3.5 gm/dl (2.5-4.0) 12/05/20 20:45 Albumin/Globulin Ratio 1.1 (0.9-2) 12/05/20 20:45 TSH 2.050 uIu/ml (0.300-4.500) 12/05/20 20:45 COVID-19 Eval Order CovFluRsv at [facility] 12/05/20 22:19 SARS-CoV-2 (PCR) NEGATIVE (Negative) 12/05/20 22:19 Influenza Type A (PCR) Negative (Neg) 12/05/20 22:19 Influenza Type B (PCR) Negative (Neg) 12/05/20 22:19 RSV (RT-PCR) Negative (Neg) 12/05/20 22:19 Supervising Physician Co-Signing Physician Notes Attending addendum: I have physically seen this patient, have supervised the medical residents activities, and agree with the H&P unless as otherwise noted. Assessment and Plan: Palpitations/elevated troponin/status post LAD URBAN and angioplasty D1 stents/hypertension- The patient will be admitted to telemetry for serial cardiac enzymes, serial EKG's, cardiac rhythm monitoring Continue aspirin, clopidogrel, metoprolol tartrate and valsartan Consult cardiology CKD- Creatinine and GFR near baseline. Follow serial BMP Remaining orders and notations as noted Resident Activity Tracking Resident Involvement: Resident Care Provided Care Provided: [facility]
[2020-12-06] MEDS ORDERED: ONDANSETRON INJ 2 MG/ML 2 ML VIAL IV PRN (01:17)
[2020-12-06] MEDS ORDERED: MAGNESIUM HYDROXIDE SUSP 30 ML UDC PO PRN (01:17)
[2020-12-06] MEDS ORDERED: NITROGLYCERIN SL 0.4 MG/TAB TAB SL PRN ×2 (01:17→04:46)
[2020-12-06] MEDS ORDERED: POLYETHYLENE (MIRALAX) 17 GM PACK PO PRN (01:17)
[2020-12-06] MEDS ORDERED: ACETAMINOPHEN 325 MG TAB PO PRN (01:17)
[2020-12-06] MEDS ORDERED: FLUTICASONE PROPIONATE NA SPR 16 GM BTL PRN (04:46)
[2020-12-06 07:41] LABS: BUN Creatinine Ratio 12.8 (10-20); Calcium 9.2 mg/dl (8.5-10.1); Creatinine Clr Calc Pharmacy 64.4 ml/min; Est GFR (Non-African American) 65.6; Magnesium 2.1 mg/dl (1.8-2.4); Potassium 3.8 mmol/L (3.5-5.1)
[2020-12-06 07:50] LABS: Troponin I 0.325 ng/ml (0-0.045)
[2020-12-06] MEDS ORDERED: CLOPIDOGREL BISULFATE 75 MG TAB PO SCH (09:00)
[2020-12-06] MEDS ORDERED: VALSARTAN 80 MG TAB PO SCH (09:00)
[2020-12-06] MEDS ORDERED: FAMOTIDINE 40 MG TABLET PO SCH (09:00)
[2020-12-06] MEDS ORDERED: ASPIRIN 81 MG ECTAB PO SCH (09:00)
[2020-12-06] MEDS ORDERED: ATORVASTATIN 40 MG TAB PO SCH (09:00)
[2020-12-06] MEDS ORDERED: METOPROLOL TARTRATE 25 MG TAB PO SCH (09:00)
--- NOTE | 2020-12-06 09:57 | Cardiology Consultation ---
Date of Consultation December 06, 2020 Assessment & Plan (1) H/O heart artery stent: His anginal symptoms appear to have resolved. His cardiac biomarkers are very mildly elevated and trending downward. I suspect this is related to his recent intervention rather than an acute coronary syndrome. No obvious complication related to his interventional procedure. He will continue on dual anti-platelet therapy. (2) Heart palpitations: Likely associated with ventricular ectopy. No associated symptoms. Even with his episode of ventricular tachycardia in the outpatient setting he did not have dizziness, lightheadedness or syncope. His current admission was likely rate related to ventricular ectopy and not VT. We have not received any notifications from with outpatient monitoring regarding ventricular tachycardia. He has not had any ventricular tachycardia and actually very little ventricular ectopy on his telemetry monitoring. (3) CAD (coronary artery disease): Known occlusion of the left circumflex. Recent intervention to the LAD. Will continue dual anti-platelet therapy and high-dose atorvastatin. (4) Non-sustained ventricular tachycardia: No documented recurrence. He may have some scar related to his known coronary occlusion. This could predispose him to additional episodes of ventricular tachycardia. Fortunately, he was not very symptomatic even with his documented episode of VT. Reportedly has normal LV systolic function which also puts him in a category of patients with a good prognosis overall. He will continue with his outpatient telemetry monitoring. I think we can increase his metoprolol to 37.5 mg twice daily. An alternate regimen would be 25 mg t.i.d.. (5) Murmur: Will attempt to obtain recent echocardiogram. No mention of murmur on prior examination. He did not actually suffered a large NE. Likelihood this related to his recent events is very small. (6) Elevated troponin: Trending downward. Only minimally elevated. No symptoms suggestive of an acute coronary syndrome. Possibly related to his intervention. History of Present Illness Reason for Consultation: Palpitations Requesting Physician: Zora Attending Physician: Alirio Jackson MD History of Present Illness The patient is a 60-year-old gentleman who was recently admitted for percutaneous intervention involving the LAD and a diagonal branch. His initial presentation involve exertional throat burning which was progressive in nature. Immediately prior to a planned stress echocardiogram the patient was noted to have an episode of ventricular tachycardia and sent to hospital where he underwent urgent angiography. This revealed a chronic total occlusion of the left circumflex with good collateralization from both the right and left. He did have a lesion in the LAD which underwent percutaneous intervention and he also underwent balloon angioplasty of a diagonal branch. The procedure was uncomplicated and he was sent home on medical therapy. Patient was quite pleased with his progress and had resolution of his symptoms until last evening when he noticed palpitations. He recognizes these as similar to those experienced prior to his planned stress test. Involved a sense of irregularity in the epigastric region. There did not appear to be other associated symptoms. He did not have his throat burning or anginal equivalent. He did not report dizziness or lightheadedness. He took his blood pressure which was mildly elevated and notified his . Her repeat blood pressure measurement was significantly elevated and he activated emergency medical. EN route the patient was noted to have ventricular ectopy. In the emergency room he had some recurrent symptoms that did not appear to correlate with ventricular ectopy. The patient admits that he was quite anxious during this time period. Overnight he was somewhat anxious but did not appear to have recurrence of either anginal symptoms or palpitations. This morning he has been ambulatory around the suero. He denies dizziness or lightheadedness. No palpitations this morning. Does have a sense of fullness in the throat, but he attributes this to anxiety. This is distinct from his usual burning associated with exertion and experienced prior to his PCI. Allergies Allergy/AdvReac Type Severity Reaction Status Date / Time No Known Drug Allergies Allergy Unknown Verified 12/05/20 22:35 Home Medications Medication Instructions Recorded Confirmed Type aspirin 81 mg tablet,delayed 81 mg PO QAM 10/15/19 12/05/20 History release fluticasone propionate 50 1 sprays INTNAS DAILY PRN 10/15/19 12/05/20 History mcg/actuation nasal spray,suspension valsartan 80 mg tablet 80 mg PO DAILY 10/15/19 12/05/20 History pantoprazole 40 mg PO DAILY 12/02/20 12/05/20 History atorvastatin 80 mg PO QAM #30 tab 12/03/20 12/05/20 Rx clopidogrel 75 mg PO QAM #30 tab 12/03/20 12/05/20 Rx nitroglycerin [Nitrostat] 0.4 mg SUBLINGUAL PRN PRN #30 tab 12/03/20 12/05/20 Rx metoprolol tartrate 37.5 mg PO BID #60 tab 12/06/20 12/05/20 Rx Patient History Medical History Chronic kidney disease Hyperlipidemia Hypertension Surgical History H/O heart artery stent 80% blockage LAD, 12/02/20 Family History Denies family history of Kidney disease Social History Smoking Status: Never smoker Hx Alcohol Use: Yes Alcohol type: beer Hx Substance Use: No 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 One biologic. Two adopted from [facility] Feels Safe at Home: Yes Assistive Devices: None Review of Systems Review of Systems: All systems reviewed & are unremarkable except as noted in HPI & below Physical Exam Physical Exam: The patient is alert and oriented. Mood and affect appeared normal. He answered all questions appropriately. HEENT: Pupils are equal and reactive to light and accommodation. Extraocular movements are intact. The sclerae are anicteric. Neuro: Cranial nerves intact Neck: Patient's neck is supple. He has palpable carotid pulses bilaterally without bruits on auscultation. There is no evidence of jugular venous distention. The thyroid is not enlarged. Lungs: Clear to auscultation bilaterally. He has good air movement without use of accessory muscles. No rales wheezes or rhonchi. Cardiac: Heart demonstrates a regular rate and rhythm. Normal S1 and S2. Harsh systolic murmur heard in the mid sternal area. Pulses: The patient has palpable radial pulses bilaterally that are equal in intensity Extremities: There was no evidence of hypoperfusion. There is no cyanosis or clubbing. Some ecchymosis at the catheter access site in the right wrist. Good palpable radial pulse at that site with good perfusion of the right hand. T here is no edema. Skin: I did not appreciate any rashes on examination today. Results & Data ([facility]) Vital Signs (Past 12 Hours) Vital Signs Temp Pulse Pulse Resp BP BP Pulse Ox 12/06/20 08:00 60 12/06/20 07:13 36.9 C 65 20 149/81 H 99 12/06/20 03:53 36.7 C 59 L 18 137/76 98 12/06/20 03:10 59 L 12/06/20 01:17 36.6 C 58 L 16 152/80 H 99 12/06/20 01:12 36.6 C 58 L 18 152/80 H 99 12/06/20 00:56 58 L 16 133/80 99 12/06/20 00:15 65 14 140/80 99 12/06/20 00:00 66 22 145/80 H 100 12/05/20 23:45 59 L 19 145/80 H 99 12/05/20 23:30 71 14 163/82 H 99 12/05/20 23:15 56 L 13 133/82 99 12/05/20 23:00 54 L 16 141/82 H 98 12/05/20 21:50 60 15 98 Pulse Ox 12/06/20 08:00 12/06/20 07:13 12/06/20 03:53 12/06/20 03:10 12/06/20 01:17 99 12/06/20 01:12 12/06/20 00:56 12/06/20 00:15 12/06/20 00:00 12/05/20 23:45 12/05/20 23:30 12/05/20 23:15 12/05/20 23:00 12/05/20 21:50 Laboratory Results Abnormal Lab Results 12/05/20 12/05/20 12/05/20 20:45 20:45 22:19 WBC 5.06 RBC 4.38 L Hgb 13.6 L Hct 40.1 L MCV 91.6 MCH 31.1 MCHC 33.9 RDW Std Deviation 41.6 RDW Coeff of Aristides 12.5 Plt Count 215 MPV 9.7 Immature Gran % (Auto) 0.0 Neut % (Auto) 54.8 Lymph % (Auto) 29.6 [place] % (Auto) 10.9 Eos % (Auto) 4.5 Baso % (Auto) 0.2 Neut # (Auto) 2.77 Lymph # (Auto) 1.50 [place] # (Auto) 0.55 Eos # (Auto) 0.23 Baso # (Auto) 0.01 Immature Gran # (Auto) 0.00 Sodium 140 Potassium 4.0 Chloride 106 Carbon Dioxide 30 Anion Gap 4.0 BUN 17 Creatinine 1.19 Est Cr Clr Drug Dosing 65.5 Est GFR ( Amer) 77.6 Est GFR (Non-Af Amer) 66.9 BUN/Creatinine Ratio 14.6 Glucose 115 H Calcium 9.4 Magnesium 2.0 Total Bilirubin 0.6 AST 18 ALT 27 Alkaline Phosphatase 48 Troponin I 0.425 H* Total Protein 7.5 Albumin 4.0 Globulin 3.5 Albumin/Globulin Ratio 1.1 TSH 2.050 COVID-19 Eval Order CovFluRsv at [facility] SARS-CoV-2 (PCR) Influenza Type A (PCR) Influenza Type B (PCR) RSV (RT-PCR) 12/05/20 12/06/20 22:19 06:56 WBC RBC Hgb Hct MCV MCH MCHC RDW Std Deviation RDW Coeff of Aristides Plt Count MPV Immature Gran % (Auto) Neut % (Auto) Lymph % (Auto) [place] % (Auto) Eos % (Auto) Baso % (Auto) Neut # (Auto) Lymph # (Auto) [place] # (Auto) Eos # (Auto) Baso # (Auto) Immature Gran # (Auto) Sodium 141 Potassium 3.8 Chloride 109 H Carbon Dioxide 29 Anion Gap 3.0 BUN 16 Creatinine 1.21 Est Cr Clr Drug Dosing 64.4 Est GFR ( Amer) 76.0 Est GFR (Non-Af Amer) 65.6 BUN/Creatinine Ratio 12.8 Glucose 98 Calcium 9.2 Magnesium 2.1 Total Bilirubin AST ALT Alkaline Phosphatase Troponin I 0.325 H* Total Protein Albumin Globulin Albumin/Globulin Ratio TSH COVID-19 Eval Order SARS-CoV-2 (PCR) NEGATIVE Influenza Type A (PCR) Negative Influenza Type B (PCR) Negative RSV (RT-PCR) Negative PG Care Time/CCT Total # of Minutes Spent Total Time Spent with Patient: Total time spent is greater than 50% in coordination of care (as documented) at patient's floor/unit and/or counseling patient: Coding Level of Care Code 17786 Office/OBS Consult Lvl 4 Diagnoses H/O heart artery stent Z95.5 Heart palpitations R00.2 CAD (coronary artery disease) I25.10 Non-sustained ventricular tachycardia I47.2 Murmur R01.1 Elevated troponin R77.8
--- NOTE | 2020-12-06 15:53 | XCELERA ---
[id number]
--- NOTE | 2020-12-06 16:06 | Discharge Summary ---
Date of Service December 06, 2020 Admission HPI Per Admitting Provider 60-year-old male past medical history coronary artery disease hyperlipidemia, hypertension, CKD, recent placement of cardiac stents to LAD on December 02, 2020. Presents to the emergency department via ambulance today for repeated episodes of palpitations and abnormal heart rhythms. Brief summation, Alonzo originally started feeling abnormal burning sensations in his throat when exercising and having his heart rate average approximately 120 bpm. He relayed this to his primary care provider who recommended he see GI given the likelihood of it being GERD. When evaluated by GI he was advised to be seen by cardiology given that the symptoms occurred primarily during exertion. He then had an appointment with cardiology to get a stress echocardiogram performed however before the echo could be initiated he started to feel the abnormal sensations in his chest and burning in his throat while only on an EKG. States that he saw the EKG waves become wider and wider and more providers become involved and concerned. He was taken to the [facility] where he was found to have an 80% blockage of his LAD getting a stent and ballooning distal to that stent placement (this was on December 02). On December 04 he followed up with his car lot attendant Dr. Glover to get an outpatient echocardiogram to evaluate his heart function was told that his heart was functioning well after stent placement. At that time they also placed an event monitor to evaluate the abnormal rhythms and palpitations that he feels. Today he came in via ambulance because he had repeated sensations of palpitations in his chest and "feeling his heartbeat in his abdomen "as well as severe anxiety surrounding these palpitations and sensations. He states that he has had a few repeat episodes while he has been in the emergency department during which she has noted that his blood pressure and heart rate both elevated but then have come back down much more quickly than they did at home. He does attest to having a history of anxiety for which he was treated with Xanax. He says that approximately 10 years ago he was on BuSpar but that did not help much. Primary Care Provider: Niranjan Beltran Admission Exam Per Admitting Provider The patient is alert and oriented. Mood and affect appeared normal. He answered all questions appropriately. HEENT: Pupils are equal and reactive to light and accommodation. Extraocular movements are intact. The sclerae are anicteric. Neuro: Cranial nerves intact Neck: Patient's neck is supple. He has palpable carotid pulses bilaterally without bruits on auscultation. There is no evidence of jugular venous distention. The thyroid is not enlarged. Lungs: Clear to auscultation bilaterally. He has good air movement without use of accessory muscles. No rales wheezes or rhonchi. Cardiac: Heart demonstrates a regular rate and rhythm. Normal S1 and S2. Harsh systolic murmur heard in the mid sternal area. Pulses: The patient has palpable radial pulses bilaterally that are equal in intensity Extremities: There was no evidence of hypoperfusion. There is no cyanosis or clubbing. Some ecchymosis at the catheter access site in the right wrist. Good palpable radial pulse at that site with good perfusion of the right hand. There is no edema. Skin: I did not appreciate any rashes on examination today. Principal Diagnosis Palpitations Ventricular ectopy Discharge Exam Constitutional well developed and well nourished; no acute distress Respiratory normal respiratory effort, lungs clear to auscultation Cardiovascular RRR, no murmur, no edema Gastrointestinal (Abdomen) normal bowel sounds, soft, nontender, no hepatosplenomegaly Musculoskeletal no cyanosis or clubbing, extremities motor strength 5/5 Skin no rashes, warm and dry Neurologic moves all extremities and awake; not confused Psychiatric A+Ox3, euthymic affect Discharge Data Allergies Allergy/AdvReac Type Severity Reaction Status Date / Time No Known Drug Allergies Allergy Unknown Verified 12/05/20 22:35 Consultations 12/05/20 22:15 ED Decision to Admit Stat 12/06/20 01:17 Consult Cardiology Routine Hospital Course (1) Heart palpitations: Alonzo Grimaldo was observed overnight at [facility] from December 05 to December 06, 2020 due to palpitations. He was diagnosed with ventricular ectopic beats. No further sustained rhythms are observed on telemetry overnight. Repeat echocardiogram showed normal left ventricular systolic function and no valve disease. He was reviewed by cardiology and determined to be stable for discharge at this time. Metoprolol tartrate increased from 25 to 37.5 mg p.o. twice daily to help reduce ventricular ectopic beats. Total Time Total Time Spent Total Time Spent (In Minutes): 35 Total Time Includes: Examination of the Patient, Discharge Planning, Medication Reconciliation and Communication With Other Providers Discharge Plan Discharge Items Patient Disposition: Home - Self-Care Reason For Visit: ABNORMAL HEART RHYTHM Discharge Diagnosis: Ventricular ectopy Activity: As commented below Activity Comment: Resume prior activity per instructions from cardiac catheterization Non-emergency contact: Primary Care Provider and [employer] Sc[employer]per Call non-emergency contact if: you have any medication questions and your symptoms worsen Follow-up/Referrals: Niranjan Beltran MD [Primary Care Provider] - 12/11/20 9:50 am Diet: Heart Healthy Addtl Attending Provider Instructions: You are observed overnight at [facility] from December 05 to December 06, 2020 due to ventricular ectopic beats in the setting of heart palpitations and recent ventricular tachycardia. No further sustained rhythms a re observed on the monitor. Repeat echocardiogram showed normal left ventricular systolic function and no valve disease. You were reviewed by cardiology and determined to be stable for discharge at this time. Recommend increasing your metoprolol tartrate to 37.5 mg p.o. twice daily to help reduce ventricular ectopic beats. Kind regards, Dr. Alirio Jackson Pending Studies at Discharge: No Stand-Alone Forms: [facility], Smoking Cessation Medications and DC Order Prescriptions: Continued aspirin 81 mg tablet,delayed release (DR/EC) 81 mg PO QAM RF: 0 fluticasone propionate [Flonase Allergy Relief] 50 mcg/actuation spray,suspension 1 sprays INTNAS DAILY PRN (Reason: allergies) RF: 0 valsartan 80 mg tablet 80 mg PO DAILY RF: 0 pantoprazole 40 mg tablet,delayed release (DR/EC) 40 mg PO DAILY RF: 0 clopidogrel 75 mg Tablet 75 mg PO QAM Qty: 30 RF: 6 atorvastatin 80 mg tablet 80 mg PO QAM Qty: 30 RF: 6 nitroglycerin [Nitrostat] 0.4 mg Tablet, Sublingual 0.4 mg sublingual PRN PRN (Reason: chest pain) Qty: 30 RF: 1 Changed metoprolol tartrate 25 mg Tablet 37.5 mg PO BID Qty: 60 RF: 6 Discontinued aspirin [Aspir-Low] 81 mg Tablet,Delayed Release (Dr/Ec) 324 mg PO .TODAY RF: 0 Discharge Orders: Discharge Order (Routine); Ordered 12/06/20 Ordered By: Alirio Jackson Admission Data Admit Date/Time: 12/06/20 00:23 Attending Provider: Alirio Jackson Admit Provider: Hoda Fischer Primary Care Provider: Niranjan Beltran Other Providers: Jax Blakely ; Farzad Aguilar Other Interventions: Discharge Summary Assessment (RN) Last Done: 12/06/20 16:29 Coding Level of Care Code Admit/DC Same Day >8hr Level 3 Diagnoses Heart palpitations R00.2
--- NOTE | 2020-12-06 18:40 | Electrocardiogram Report ---
Test Reason : Blood Pressure : / mmHG Vent. Rate : 065 BPM Atrial Rate : 065 BPM P-R Int : 186 ms QRS Dur : 110 ms QT Int : 392 ms P-R-T Axes : 049 -28 049 degrees QTc Int : 407 ms Normal sinus rhythm Incomplete right bundle branch block Borderline ECG When compared with ECG of 03-DEC-2020 03:26, Nonspecific T wave abnormality no longer evident in Inferior leads Confirmed by Wolfgang Aguilar ([id number]) on 12/06/2020 6:39:40 PM Referred By: REFERRED SELF Confirmed By:Ruddy Aguilar
--- NOTE | 2020-12-07 22:23 | Billing Data ---
Date of Service December 07, 2020 Coding Level of Care Code 56274 OBS Care - Level 3
== END 2020-12-06 18:48 | disposition home or self-care (01) ==
LOC: ED 20:25 → 2S 20:25 → SUATTDRO 12-06 00:23 → 2S 12-06 00:56

== ENCOUNTER 2020-12-13 17:01 | Observation (INO) ==
[2020-12-13] MEDS ORDERED: NITROGLYCERIN 2% OINTMENT 30GM TUBE EXT STA (17:42)
--- NOTE | 2020-12-13 17:49 | Emergency Department Note ---
Impression & Plan Palpitations, Coronary arteriosclerosis, Status post coronary artery stent placement, Hx of ventricular tachycardia ED Provider Note NAME: CASPER MIGUEL AGE: 60 SEX: M : 1960 ARRIVES VIA: Ambulance INFORMANT: [Patient] ED PROVIDER(S): [Sahil Encinas MD] CHIEF COMPLAINT: Cardiac assessment HISTORY OF PRESENT ILLNESS: The patient is a 60-year-old male who had a recent LAD stent placed. This was done on the . The patient was admitted to our hospital on the . He was admitted for palpitations. His palpitations were thought secondary to ventricular ectopy. There was initial concern for V. tach as he has a diagnosis of V. tach, but, no aberrant rhythm was found. Apparently, his troponin was mildly elevated but trended down and the elevation was thought secondary to his stenting procedure. Patient has had his beta-bobbi increased from 25 mg twice a day to 37.5 mg twice a day and now 50 mg twice a day. He has been on the 50 mg dosing for 2 to 3 days. The patient states that he was feeling good up until today at around 1:00, 4.5 hours ago. He began to feel flushed. He felt a lump in his throat which is his anginal equivalent. The lump was a 1 on a scale of 1-10. No shortness of breath, no sweating or nausea. He did not take any nitroglycerin. He also at one point felt palpitations and he thought his heart may have been racing. There was no syncope. The patient is currently wearing a monitor called [employer]. He did send his complaints through his phone to this company. He has not heard from them. The patient had an EPS evaluation last week. He was told he would be a candidate for ablation although, no procedure has been scheduled. REVIEW OF SYSTEMS: See HPI for pertinent positives and negatives. A total of ten systems were reviewed and were otherwise negative. PMHx/PSHx: See Below SOCIAL HISTORY: See Below. PHYSICAL EXAM: GENERAL: Patient is in no acute distress. HEENT: No acute trauma, normocephalic atraumatic, mucous membranes moist, no nasal congestion, no scleral icterus. NECK: No stridor, no adenopathy, no meningismus, trachea is midline. LUNGS: Clear to auscultation bilaterally, no wheeze, no rhonchi, breath sounds equal. HEART: Mildly bradycardic, regular rhythm, slight systolic murmur. ABDOMEN: Soft, nontender, bowel sounds positive, no hernias, no peritonitis. EXTREMITIES: No cyanosis or edema, full range of motion of all the joints without pain or difficulty, no signs for acute trauma. NEUROLOGIC: Oriented x 3, no acute motor or sensory deficits, no focal weakness. SKIN: No rash, no jaundice, no diaphoresis. DIFFERENTIAL DIAGNOSIS: Cardiac ischemia, A. fib/a flutter, V. tach, aortic dissection, pulmonary embolism, pneumothorax, pneumonia, pericarditis, myocarditis, esophageal rupture, GERD, cholecystitis, pancreatitis, musculoskeletal, as well as other pathologies. EMERGENCY DEPARTMENT COURSE/PROCEDURES: ECG: Indication was palpitations and chest pain. The ECG shows a sinus bradycardia with a rate of 55. There is an incomplete right bundle branch block. There is no ST elevation, no PVCs. The QTc is 388. Compared to an ECG from 05 December 2020, the rate has decreased. His nonspecific ST changes have resolved. Continuous Cardiac Monitoring: An order was placed for continuous cardiac monitoring. The monitor shows a rate of 54 with sinus bradycardia. MEDICAL DECISION MAKING: There is no leukocytosis or worrisome anemia. There is a normal platelet count. Creatinine is mildly elevated consistent with some dehydration/renal insufficiency. No significant electrolyte abnormality in need of emergent correction. There is no liver enzyme elevation. No evidence for pancreatitis. ECG shows a sinus bradycardia, no acute ischemia. Cardiac enzyme testing x1 is not consistent with acute cardiac injury. Chest x-ray does not show mediastinal widening, pneumonia or pneumothorax. The patient received IV saline, 500 cc. He was given 1 inch of nitroglycerin paste. The patient does not seem to feel any better with the nitroglycerin paste. He still has this very slight lump sensation in his throat. I spoke with cardiology. Given the patient's recent complicated past, given his recent coronary stenting and history of V. tach, hospitalization, monitoring and cardiac consult was felt appropriate. I spoke to the patient at length. I spoke with case management. The on-call hospitalist was consulted. Past Med/Surg History Medical History Chronic kidney disease Hyperlipidemia Hypertension Surgical History H/O heart artery stent 80% blockage LAD, 12/02/20 Family History Denies family history of Kidney disease Social History Smoking Status: Unknown if ever smoked Hx Alcohol Use: Yes Alcohol type: beer Hx Substance Use: No Preferred Language: Romanian Wound Nurse Required: No Beliefs That Will Affect Care: None marital status: Current Living Situation: Family Current Living Situation Comment: Moved from [place] to [place] 2018 for fdc & renovate home current occupational status: retired current occupation: retired 2017 from [employer] other: 3 children. One biologic. Two adopted from [facility] Feels Safe at Home: Yes Assistive Devices: None Allergies Allergies Allergy/AdvReac Type Severity Reaction Status Date / Time No Known Drug Allergies Allergy Unknown Verified 12/13/20 18:51 Home Meds Home Medications Medication Instructions Recorded Confirmed aspirin 81 mg tablet,delayed 81 mg PO QAM 10/15/19 12/13/20 release fluticasone propionate 50 1 sprays INTNAS DAILY PRN 10/15/19 12/13/20 mcg/actuation nasal spray,suspension valsartan 80 mg tablet 80 mg PO QAM 10/15/19 12/13/20 pantoprazole 40 mg PO QAM 12/02/20 12/13/20 amlodipine 2.5 mg PO QAM 12/13/20 12/13/20 buspirone 5 mg PO BID 12/13/20 12/13/20 lactobacillus combination no.4 3,000 mmu cells PO QAM 12/13/20 12/13/20 [Probiotic] Previous Rx's Medication Instructions Recorded atorvastatin 80 mg PO QAM #30 tab 12/03/20 clopidogrel 75 mg PO QAM #30 tab 12/03/20 nitroglycerin [Nitrostat] 0.4 mg SUBLINGUAL PRN PRN #30 tab 12/03/20 metoprolol tartrate 37.5 mg PO BID #60 tab 12/06/20 Results & Data (ED) Vital Signs Vital Signs - 24 hr 12/13/20 17:16 12/13/20 19:14 Temperature 37.1 C Temperature Source Oral Pulse Rate 85 Pulse Rate [Right Finger] 50 L Respiratory Rate 20 16 Respiratory Effort / Characteristics Non-Labored Spontaneous Non-Labored Spontaneous Respiratory Depth Normal Normal Respiratory Pattern Regular Blood Pressure 146/85 H Blood Pressure [Right Arm] 124/73 Blood Pressure Mean 105 Blood Pressure Mean [Right Arm] 90 Blood Pressure Position [Right Arm] Lying Pulse Oximetry 99 99 Oxygen Delivery Method Room Air Room Air Sepsis Recent Fever Within 48 Hours No Sepsis New/Unexplained Change in Mental Status N/A Sepsis Action Taken by Nursing No Action Required Home Medications Current Medication List: was personally reviewed by me Laboratory Data Attestation: I reviewed the patient's lab results. Result diagrams: 12/13/20 17:21 12/13/20 17:21 Lab Results 12/13/20 12/13/20 Range/Units 17:21 17:21 WBC 4.74 L (4.8-10.8) K/uL RBC 4.34 L (4.7-6.1) M/uL Hgb 13.3 L (14.0-18.0) g/dL Hct 39.5 L (42-52) % MCV 91.0 (80-100) fL MCH 30.6 (25-34) pg MCHC 33.7 (32-36) g/dL RDW Std Deviation 42.0 (36.4-46.3) fL RDW Coeff of Aristides 12.6 (11.5-14.5) % Plt Count 248 (130-400) K/uL MPV 9.7 (7.4-10.4) fL Immature Gran % (Auto) 0.0 % Neut % (Auto) 59.2 % Lymph % (Auto) 21.9 % Loup % (Auto) 12.4 % Eos % (Auto) 5.9 % Baso % (Auto) 0.6 % Neut # (Auto) 2.80 (1.4-6.5) K/uL Lymph # (Auto) 1.04 L (1.2-3.4) K/uL Loup # (Auto) 0.59 (0.11-0.59) K/uL Eos # (Auto) 0.28 (0-0.5) K/uL Baso # (Auto) 0.03 (0-0.2) K/uL Immature Gran # (Auto) 0.00 (0.00-0.02) K/uL Sodium 142 (136-145) mmol/L Potassium 4.2 (3.5-5.1) mmol/L Chloride 109 H (98-107) mmol/L Carbon Dioxide 30 (21-32) mmol/L Anion Gap 3.0 (3-11) BUN 19 H (7-18) mg/dl Creatinine 1.41 H (0.6-1.4) mg/dl Est Cr Clr Drug Dosing 59.0 ml/min Est GFR ( Amer) 63.2 Est GFR (Non-Af Amer) 54.5 BUN/Creatinine Ratio 13.4 (10-20) Glucose 92 (70-99) mg/dl Calcium 9.3 (8.5-10.1) mg/dl Magnesium 2.3 (1.8-2.4) mg/dl Total Bilirubin 0.6 (0.2-1) mg/dl AST 14 L (15-37) U/L ALT 28 (12-78) U/L Alkaline Phosphatase 46 (45-117) U/L Troponin I < 0.015 (0-0.045) ng/ml Total Protein 7.6 (6.4-8.2) gm/dl Albumin 4.2 (3.4-5.0) gm/dl Globulin 3.4 (2.5-4.0) gm/dl Albumin/Globulin Ratio 1.2 (0.9-2) Lipase 261 (73-393) U/L Administered Medications Discontinued Medications Sodium Chloride (Nss 1000ml) 500 mls @ 999 mls/hr IV .Q31M ONE Stop: 12/13/20 18:37 Last Admin: 12/13/20 18:14 Dose: 999 mls/hr Documented by: [id number] Nitroglycerin (Nitroglycerin 2% Ointment 30gm Tube) 1 inch EXT NOW STA Stop: 12/13/20 17:43 Last Admin: 12/13/20 18:12 Dose: 1 inch Documented by: [id number] Imaging Data Radiologist's Impression: Chest X-Ray 12/13/20 17:42 SINGLE VIEW CHEST CLINICAL HISTORY: Atypical chest pain. FINDINGS: An AP, portable, upright chest radiograph is correlated with chest CT dated 12/02/2020. An electronic device projects over the mid chest. The heart is top normal for projection. The lungs and pleural spaces are clear. No pneumothorax is seen. The bony thorax is grossly intact. IMPRESSION: No active disease in the chest. ACT 112: Negative or not required by law. Electronically signed by: Sahil Cohn M.D. 12/13/2020 6:27 PM Discharge Plan Visit Data Chief Complaint: Cardiac Assessment Stated Complaint: HEART PALP. ED Provider: Sahil Encinas Discharge Problem: Palpitations, Coronary arteriosclerosis, Status post coronary artery stent placement, Hx of ventricular tachycardia Patient Disposition: Admitted As Inpatient Condition: Good Forms Stand Alone Forms: [facility] [employer] Prescriptions Prescriptions: No Action aspirin 81 mg tablet,delayed release (DR/EC) 81 mg PO QAM RF: 0 fluticasone propionate [Flonase Allergy Relief] 50 mcg/actuation spray,suspension 1 sprays INTNAS DAILY PRN (Reason: allergies) RF: 0 valsartan 80 mg tablet 80 mg PO QAM RF: 0 pantoprazole 40 mg tablet,delayed release (DR/EC) 40 mg PO QAM RF: 0 clopidogrel 75 mg Tablet 75 mg PO QAM Qty: 30 RF: 6 atorvastatin 80 mg tablet 80 mg PO QAM Qty: 30 RF: 6 nitroglycerin [Nitrostat] 0.4 mg Tablet, Sublingual 0.4 mg sublingual PRN PRN (Reason: chest pain) Qty: 30 RF: 1 metoprolol tartrate 25 mg Tablet 37.5 mg PO BID Qty: 60 RF: 6 buspirone 5 mg tablet 5 mg PO BID RF: 0 amlodipine 2.5 mg tablet 2.5 mg PO QAM RF: 0 Probiotic 3 billion cell Capsule 3,000 mmu cells PO QAM RF: 0 Referrals Referrals: Niranjan Beltran MD [Primary Care Provider] -
[2020-12-13 17:50] LABS: Basophils # (auto) 0.03 K/uL (0-0.2); Basophils % (auto) 0.6 %; Eosinophils # (auto) 0.28 K/uL (0-0.5); Eosinophils % (auto) 5.9 %; Hematocrit (blood only) 39.5 % (42-52); Hemoglobin 13.3 g/dL (14.0-18.0); Lymphocytes # (auto) 1.04 K/uL (1.2-3.4); Lymphocytes % (auto) 21.9 %; Mean Corpuscular Hemoglobin 30.6 pg (25-34); Mean Corpuscular Hgb Conc 33.7 g/dL (32-36); Mean Platelet Volume 9.7 fL (7.4-10.4); Monocytes # (auto) 0.59 K/uL (0.11-0.59); Monocytes % (auto) 12.4 %; Neutrophils % (auto) 59.2 %; Platelet Count 248 K/uL (130-400); RDW Coefficient of Variation 12.6 % (11.5-14.5); Red Blood Count 4.34 M/uL (4.7-6.1); White Blood Count 4.74 K/uL (4.8-10.8)
[2020-12-13 17:58] LABS: Alanine Aminotransferase 28 U/L (12-78); Albumin Level 4.2 gm/dl (3.4-5.0); Aspartate Aminotransferase 14 U/L (15-37); BUN Creatinine Ratio 13.4 (10-20); Blood Urea Nitrogen 19 mg/dl (7-18); Calcium 9.3 mg/dl (8.5-10.1); Carbon Dioxide 30 mmol/L (21-32); Chloride 109 mmol/L (98-107); Est GFR (African American) 63.2; Est GFR (Non-African American) 54.5; Glucose 92 mg/dl (70-99); Lipase 261 U/L (73-393); Magnesium 2.3 mg/dl (1.8-2.4); Potassium 4.2 mmol/L (3.5-5.1); Sodium 142 mmol/L (136-145)
[2020-12-13 18:03] LABS: Albumin Globulin Ratio 1.2 (0.9-2); Alkaline Phosphatase 46 U/L (45-117); Bilirubin,Total 0.6 mg/dl (0.2-1); Globulin 3.4 gm/dl (2.5-4.0); Total Protein 7.6 gm/dl (6.4-8.2); Troponin I < 0.015 ng/ml (0-0.045)
[2020-12-13] MEDS ORDERED: SODIUM CHLORIDE 0.9% 1000ML 500 ML IV ONE ×2 (18:07→20:02)
--- NOTE | 2020-12-13 18:28 | XRay Report ---
SINGLE VIEW CHEST CLINICAL HISTORY: Atypical chest pain. FINDINGS: An AP, portable, upright chest radiograph is correlated with chest CT dated 12/02/2020. An e [employer] device projects over the mid chest. The heart is top normal for projection. The lungs and p leural spaces are clear. No pneumothorax is seen. The bony thorax is grossly intact. IMPRESSION: No active disease in the chest. ACT 112: Negative or not required by law. Electronically signed by: Sahil Cohn M.D. 12/13/2020 6:27 PM
--- NOTE | 2020-12-13 20:14 | History & Physical Report ---
Date of Service December 13, 2020 Assessment & Plan (1) Heart palpitations: 60 yo M PMHx CAD s/p stent, ventricular ectopy, HTN, CKD with baseline creatinine 1.1-1.2, GERD admitted observation for complaints of heart palpitations. Heart palpitations/flushing: -Questionable history of ventricular ectopy, on metoprolol 50 BID. -No complaints of palpitations at this time, though did have palpitations earlier today with associated flushing. -Possibility of angioplasty considered on recent admission, following with EPS. -Telemetry shows sinus bradycardia, continue telemetry for cardiac monitoring. -Cardiology consulted, Dr. Glover to see in AM. -Serum metanephrines and cortisol ordered to rule out pheochromocytoma. CAD / HTN / HLD: -S/p stent to LAD on 12/02, Echo that admission with normal LVEF. Patent foramen ovale suspected on that echocardiogram. -Continue metoprolol, valsartan, amlodipine, atorvastatin, aspirin, Plavix. -Nitro prn, no chest pain. -Trend troponins x3. CKD: -Baseline creatinine 1.1-1.3; 1.41 on admission. -Given total of 1L NSS bolus in EF. -Repeat BMP in AM. GERD: -Continue home pantoprazole. Code Status: FULL CODE DVT ppx: SCDs, ad bre on demand FEN: Heart Healthy diet, NPO at midnight Dispo: Telemetry for cardiac monitoring, serial troponins, Cardiology consult (2) CAD (coronary artery disease): (3) Hyperlipidemia: (4) Hypertension: (5) Chronic kidney disease: (6) H/O heart artery stent: History of Present Illness Chief Complaint: heart palpitations Primary Care Provider: Niranjan Beltran 60 yo M PMHx CAD s/p recent stent x1 to LAD, ventricular ectopy, HTN, CKD with baseline creatinine 1.1-1.3, GERD presented to ER due to heart palpitations and globus sensation. Of note, was recently admitted for similar type symptoms and ultimately had stent x1 placed to LAD. During previous admission he also had sensation of palpitations, questionably due to ventricular ectopy. Follows with Dr. Aguilar and Dr. Glover, and currently has implanted recorder. Today while doing light activity up some stairs and picking up some light items felt a sensation of flushing and palpitations, which did improve with rest. However, the sensation returned and due to his cardiac history he presented to the ER. In the ER troponin was negative, EKG without changes, telemetry showed sinus bradycardia. Cardiology (Dr. Glover) advised observation and telemetry. On my interview denies chest pain, palpitations, shortness of breath, nausea, dizziness, headache, recent fevers or chills. Allergies Allergy/AdvReac Type Severity Reaction Status Date / Time No Known Drug Allergies Allergy Unknown Verified 12/13/20 18:51 Home Medications Medication Instructions Recorded Confirmed Type aspirin 81 mg tablet,delayed 81 mg PO QAM 10/15/19 12/13/20 History release fluticasone propionate 50 1 sprays INTNAS DAILY PRN 10/15/19 12/13/20 History mcg/actuation nasal spray,suspension valsartan 80 mg tablet 80 mg PO QAM 10/15/19 12/13/20 History pantoprazole 40 mg PO QAM 12/02/20 12/13/20 History atorvastatin 80 mg PO QAM #30 tab 12/03/20 12/13/20 Rx clopidogrel 75 mg PO QAM #30 tab 12/03/20 12/13/20 Rx nitroglycerin [Nitrostat] 0.4 mg SUBLINGUAL PRN PRN #30 tab 12/03/20 12/13/20 Rx metoprolol tartrate 37.5 mg PO BID #60 tab 12/06/20 12/13/20 Rx amlodipine 2.5 mg PO QAM 12/13/20 12/13/20 History buspirone 5 mg PO BID 12/13/20 12/13/20 History lactobacillus combination no.4 3,000 mmu cells PO QAM 12/13/20 12/13/20 History [Probiotic] Past Med/Surg History Medical History Chronic kidney disease Hyperlipidemia Hypertension Surgical History H/O heart artery stent 80% blockage LAD, 12/02/20 Family History Denies family history of Kidney disease Social History Smoking Status: Never smoker Second Hand Exposure: No; Do You Dip or Chew Tobacco: No; Hx Alcohol Use: Yes Alcohol type: beer Hx Substance Use: No Preferred Language: Mauritanian Communication Ability: Effective 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 One biologic. Two adopted from [facility] Feels Safe at Home: Yes Safety Concerns: Feels Safe At This Time Assistive Devices: Contacts and Glasses Review of Systems Review of Systems: All systems reviewed & are unremarkable except as noted in HPI & below Constitutional: no fever, no chills and no malaise Respiratory: no cough and no dyspnea Cardiovascular: no chest pain, no palpitations (currently at time of admission interview) and no edema Gastrointestinal: no abdominal pain, no constipation and no diarrhea/loose stools Physical Exam Constitutional: WD/WN, vitals as above Eyes: PERRL, conjunctivae normal, anicteric sclerae ENMT: external ear and nose normal, oropharynx normal Neck: normal visual inspection Respiratory: normal respiratory effort, lungs clear to auscultation Cardiovascular: Rate/Rhythm: regular rate and + bradycardic (HR 50s) Heart Sounds: + murmur (2/6 systolic mid-sternal murmur) Extremities: no edema Gastrointestinal (Abdomen): normal bowel sounds, soft, nontender, no hepatosplenomegaly Musculoskeletal: no cyanosis or clubbing, extremities motor strength 5/5 Skin: no rashes, warm and dry Neurologic: AAOx3, normal speech. Bilateral UE, LE, and face without sensory or motor deficits. No tremor. Psychiatric: A+Ox3, euthymic affect Results & Data Results & Data ([facility]) Vital Signs (Past 12 Hours) Vital Signs Temp Pulse Pulse Resp BP BP Pulse Ox 12/13/20 19:14 50 L 16 124/73 99 12/13/20 17:16 37.1 C 85 20 146/85 H 99 Code Status & VTE Plan VTE Prophylaxis Plan VTE Prophylaxis will be ordered: Yes Supervising Physician Co-Signing Physician Notes Patient seen and examined, chart reviewed, case discussed with Dr. Winters and I agree with her assessment and plan as above. Briefly, patient is a 60yo male with history of HTN, HLP, CAD and NSVT. Patient reports sensation of globus and fullness in his throat as well as palpitations. Similar to prior episode of ACS. Patient states that he will become warm and flushed then experience palpitations and feeling of uneasiness. On exam he is afebrile, HD stable, NAD Skin - warm, dry, intact, no rashes/lesions HEENT - NC/AT, PERRL, EOMI, MMM, Neck supple Heart - +S1/S2, regular, no m/r/g Lungs- CTA Abd - +BS, soft, NT/ND Ext - No edema Labs and images reviewed. Troponin x 2 negative. NO acute ischemic changes or arrhythmia noted on EKG Assessment/Plan: -Telemetry monitoring -Trend troponin -Will send serum metanephrines and cortisol. Patient reports episodes of flushing/palpitations/anxiety - pheo is extremely rare. -Patient to continue Metoprolol, Valsartan, Amlodipine, Atorvastain, ASA, Plavix -Cardiology consultation appreciated. Patient to be seen by Dr. Glover in AM Resident Activity Tracking Resident Involvement: Resident Care Provided Care Provided: Adult Hospital Medicine (1) CAD (coronary artery disease) Associated angina: unspecified whether angina present Coronary Disease- Associated Artery/Lesion type: [place] artery [place] vs. transplanted heart: [place] heart Qualified Code(s): I25.10 - Atherosclerotic heart disease of [place] coronary artery without angina pectoris (2) Hyperlipidemia Hyperlipidemia type: unspecified Qualified Code(s): E78.5 - Hyperlipidemia, unspecified (3) Chronic kidney disease Chronic kidney disease stage: stage 1 Qualified Code(s): N18.1 - Chronic kidney disease, stage 1 (4) Hypertension Hypertension type: essential hypertension Qualified Code(s): I10 - Essential (primary) hypertension
[2020-12-13 21:05] LABS: Influenza A virus by PCR Negative (Neg); Influenza B virus by PCR Negative (Neg); RSV by PCR Negative (Neg); SARS CoV2 RNA(COVID-19) InHosp NEGATIVE (Negative)
[2020-12-13] MEDS ORDERED: FLUTICASONE PROPIONATE NA SPR 16 GM BTL PRN (22:12)
[2020-12-13] MEDS ORDERED: NITROGLYCERIN SL 0.4 MG/TAB TAB SL PRN (22:12)
[2020-12-13] MEDS ORDERED: ACETAMINOPHEN 325 MG TAB PO PRN (22:12)
[2020-12-13] MEDS ORDERED: ONDANSETRON INJ 2 MG/ML 2 ML VIAL IV PRN (22:12)
[2020-12-13] MEDS: METOPROLOL TARTRATE 50 MG TAB PO SCH (22:59)
[2020-12-13] MEDS: busPIRone 5 MG TAB PO SCH (23:22)
--- NOTE | 2020-12-14 02:10 | Billing Data ---
Date of Service December 13, 2020 Coding Level of Care Code 44964 OBS Care - Level 3
[2020-12-14 02:39] LABS: Basophils # (auto) 0.01 K/uL (0-0.2); Basophils % (auto) 0.2 %; Eosinophils # (auto) 0.37 K/uL (0-0.5); Eosinophils % (auto) 7.4 %; Hematocrit (blood only) 36.4 % (42-52); Hemoglobin 12.3 g/dL (14.0-18.0); Lymphocytes # (auto) 1.61 K/uL (1.2-3.4); Lymphocytes % (auto) 32.3 %; Mean Corpuscular Hemoglobin 30.4 pg (25-34); Mean Corpuscular Hgb Conc 33.8 g/dL (32-36); Mean Corpuscular Volume 90.1 fL (80-100); Mean Platelet Volume 9.4 fL (7.4-10.4); Monocytes # (auto) 0.59 K/uL (0.11-0.59); Monocytes % (auto) 11.8 %; Neutrophils # (auto) 2.41 K/uL (1.4-6.5); Neutrophils % (auto) 48.3 %; Platelet Count 223 K/uL (130-400); RDW Coefficient of Variation 12.7 % (11.5-14.5); RDW Standard Deviation 42.1 fL (36.4-46.3); Red Blood Count 4.04 M/uL (4.7-6.1); White Blood Count 4.99 K/uL (4.8-10.8)
[2020-12-14 03:04] LABS: BUN Creatinine Ratio 13.2 (10-20); Blood Urea Nitrogen 17 mg/dl (7-18); Calcium 8.4 mg/dl (8.5-10.1); Carbon Dioxide 32 mmol/L (21-32); Chloride 112 mmol/L (98-107); Creatinine Clr Calc Pharmacy 60.4 ml/min; Est GFR (African American) 70.4; Est GFR (Non-African American) 60.7; Glucose 126 mg/dl (70-99); Potassium 3.7 mmol/L (3.5-5.1); Sodium 146 mmol/L (136-145)
[2020-12-14 03:09] LABS: Troponin I < 0.015 ng/ml (0-0.045)
--- NOTE | 2020-12-14 07:58 | Electrocardiogram Report ---
Test Reason : Blood Pressure : / mmHG Vent. Rate : 055 BPM Atrial Rate : 055 BPM P-R Int : 174 ms QRS Dur : 104 ms QT Int : 406 ms P-R-T Axes : 000 -05 005 degrees QTc Int : 388 ms Sinus bradycardia Incomplete right bundle branch block Borderline ECG When compared with ECG of 05-DEC-2020 20:34, No significant change was found Confirmed by Jose Ramon Chiu ([id number]) on 12/14/2020 7:58:29 AM Referred By: REFERRED SELF Confirmed By:Jose Ramon Chiu
[2020-12-14] MEDS: METOPROLOL TARTRATE 50 MG TAB PO SCH (08:42)
[2020-12-14] MEDS: busPIRone 5 MG TAB PO SCH (08:43)
[2020-12-14] MEDS ORDERED: CLOPIDOGREL BISULFATE 75 MG TAB PO SCH (09:00)
[2020-12-14] MEDS ORDERED: amLODIPine BESYLATE 5 MG TAB PO SCH (09:00)
[2020-12-14] MEDS ORDERED: PANTOprazole 40 MG TAB PO SCH (09:00)
[2020-12-14] MEDS ORDERED: ATORVASTATIN 40 MG TAB PO SCH (09:00)
[2020-12-14] MEDS ORDERED: ADVANCED PROBIOTIC 1250 MG CAPSULE PO SCH (09:00)
[2020-12-14] MEDS ORDERED: ASPIRIN 81 MG ECTAB PO SCH (09:00)
[2020-12-14] MEDS ORDERED: VALSARTAN 80 MG TAB PO SCH (09:00)
--- NOTE | 2020-12-14 09:50 | Electrocardiogram Report ---
Test Reason : Blood Pressure : / mmHG Vent. Rate : 053 BPM Atrial Rate : 053 BPM P-R Int : 188 ms QRS Dur : 106 ms QT Int : 440 ms P-R-T Axes : 013 071 054 degrees QTc Int : 412 ms Sinus bradycardia Incomplete right bundle branch block Borderline ECG When compared with ECG of 13-DEC-2020 17:17, (unconfirmed) No significant change was found Confirmed by Shine Glover ([id number]) on 12/14/2020 9:50:13 AM Referred By: REFERRED SELF Confirmed By:Shine Glover
--- NOTE | 2020-12-14 11:56 | Cardiology Consultation ---
Date of Consultation Today's consultation was completed with the primary service in the room. Both Dr. Lester on the resident were present as well. I spent over 60 minutes r eviewing his medical records, discussion with [employer] with regards to his event recorder yesterday and in discussion with the primary service. This is the third admission for Alonzo in the last 2 weeks. Yesterday he started feeling what sounds like anxious his heart rate slowly increase this in turn made him feel more anxious his blood pressure milagros slightly again making him feel more anxious. He then had a period of time where he calmed himself down by playing a video game. When he was about to get up after a number of hours and start doing more activity he started to notice an increase in his feelings including palpitations slight lump in his throat and a flush sensation. At no time did he have chest pain or chest pressure or chest heaviness. I did contact [facility] who noted that even when he hit the button yesterday at 1:00 he was in sinus rhythm without PVCs. He did have some rare PVCs in the afternoon. There have been no episodes of nonsustained VT or ventricular tachycardia. He is incredibly anxious he has meticulously documented his heart rates and blood pressures. He denies any orthostatic symptoms. He denies any falls. He actually went on a walk yesterday morning with his and felt well he is also walked on the treadmill at a slow pace and has felt well. He has had no anginal symptoms since he was last seen in the office last week. The rest of a complete her systems otherwise negative December 14, 2020 History of Present Illness Attending Physician: Robbi Lester DO Allergies Allergy/AdvReac Type Severity Reaction Status Date / Time No Known Drug Allergies Allergy Unknown Verified 12/13/20 18:51 Home Medications Medication Instructions Recorded Confirmed Type aspirin 81 mg tablet,delayed 81 mg PO QAM 10/15/19 12/13/20 History release fluticasone propionate 50 1 sprays INTNAS DAILY PRN 10/15/19 12/13/20 History mcg/actuation nasal spray,suspension valsartan 80 mg tablet 80 mg PO QAM 10/15/19 12/13/20 History pantoprazole 40 mg PO QAM 12/02/20 12/13/20 History atorvastatin 80 mg PO QAM #30 tab 12/03/20 12/13/20 Rx clopidogrel 75 mg PO QAM #30 tab 12/03/20 12/13/20 Rx nitroglycerin [Nitrostat] 0.4 mg SUBLINGUAL PRN PRN #30 tab 12/03/20 12/13/20 Rx metoprolol tartrate 37.5 mg PO BID #60 tab 12/06/20 12/13/20 Rx amlodipine 2.5 mg PO QAM 12/13/20 12/13/20 History buspirone 5 mg PO BID 12/13/20 12/13/20 History lactobacillus combination no.4 3,000 mmu cells PO QAM 12/13/20 12/13/20 History [Probiotic] Patient History Medical History Chronic kidney disease Hyperlipidemia Hypertension Surgical History H/O heart artery stent 80% blockage LAD, 12/02/20 Family History Denies family history of Kidney disease Social History Smoking Status: Never smoker Second Hand Exposure: No; Do You Dip or Chew Tobacco: No; Hx Alcohol Use: Yes Alcohol type: beer Hx Substance Use: No Preferred Language: German Communication Ability: Effective Guest Room Attendant Required: No Beliefs That Will Affect Care: None marital status: Current Living Situation: Family Current Living Situation Comment: Moved from [place] to [place] 2018 for long term & renovate home current occupational status: retired current occupation: retired 2017 from [employer] Other Information That Helps Us Care for You: No other: 3 children. One biologic. Two adopted from [facility] Feels Safe at Home: Yes Safety Concerns: Feels Safe At This Time Assistive Devices: Contacts and Glasses Results & Data ([facility]) Vital Signs (Past 12 Hours) Vital Signs Temp Pulse Pulse Resp BP BP Pulse Ox 12/14/20 10:46 36.9 C 53 L 19 120/79 97 12/14/20 09:30 56 L 12/14/20 07:30 36.6 C 56 L 19 131/71 98 12/14/20 03:59 36.8 C 54 L 18 106/60 98 he is awake alert oriented x3 he is in no acute distress he does appear anxious. HEENT: 2+ carotid obstruction of the carotid bruits : Lungs crepitation bilaterally no rales rhonchi wheezing Heart: Regular rate and rhythm there is a soft systolic ejection murmur Abdomen: Soft nontender distended positive bowel sounds Extremities: No clubbing cyanosis or edema Psychiatric he appears anxious Neurologic: He is awake alert and oriented x3 Impressions: 1. status post angioplasty and stenting of the LAD with balloon angioplasty of the first diagonal branch (11/2020) 2. History of PVCs and sustained VT in the office 3. Basal inferior and basal inferolateral scar with preserved left ventricular systolic function on his outpatient echocardiogram 4. Scar induced PVCs and nonsustained VT 5. Significant anxiety and type A personality 6. Hypertension and hyperlipidemia I reviewed his front desk monitor here he has had no ventricular ectopy whatsoever. As discussed above I discussed with by telehealth and at the time yesterday he did not have any ectopy either. In fact since his monitors on he had one 6 beat run of nonsustained VT but nothing since. He is on an appropriate dose of beta-blockers his heart rates in the low 50s. I discussed him as long as his heart rates in the mid 40s or higher and he is not lightheaded or dizzy or feeling weak he should remain on this dose of beta- bobbi. As was discussed with the primary service we will switch him to Zoloft which has better short-term anxiety of impact. Additionally we will send him home with as needed Ativan which will help get him through the periods where he is having anxiety. Ultimately this is all related to catecholamines. As his anxiety rises he increases his fighter flight hormones which in turn increases his anxiety and raises his heart rate and blood pressure which in turn make him more anxious. In addition he has the typical [employer] personality and with everything that is transpired in the last 2 weeks this is only lead to his anxiety. We also discussed not checking his blood pressure and heart rate nearly as frequently. Again it becomes a self-fulfilling prophecy that only leads to additional anxiety. I will reach out to the EP service at [facility] as he would consider PVC/VT ablation sooner. We would like him to be at least 6 weeks out from his angioplasty and stenting and then as long as they are willing to do the procedure on Plavix he could proceed if they want to wait until he can come off Plavix the soonest would be 3 months in the latest would be 6 months. He is scheduled to see in the office next Tuesday. He can keep that appointment. From my standpoint he can be discharged home
--- NOTE | 2020-12-14 13:11 | Discharge Summary ---
Date of Service December 14, 2020 Admission HPI Per Admitting Provider 60 yo M PMHx CAD s/p recent stent x1 to LAD, ventricular ectopy, HTN, CKD with baseline creatinine 1.1-1.3, GERD presented to ER due to heart palpitations and globus sensation. Of note, was recently admitted for similar type symptoms and ultimately had stent x1 placed to LAD. During previous admission he also had sensation of palpitations, questionably due to ventricular ectopy. Follows with Dr. Aguilar and Dr. Glover, and currently has implanted recorder. Today while doing light activity up some stairs and picking up some light items felt a sensation of flushing and palpitations, which did improve with rest. However, the sensation returned and due to his cardiac history he presented to the ER. In the ER troponin was negative, EKG without changes, telemetry showed sinus bradycardia. Cardiology (Dr. Glover) advised observation and telemetry. On my interview denies chest pain, palpitations, shortness of breath, nausea, dizziness, headache, recent fevers or chills. Admission Exam Per Admitting Provider Constitutional: WD/WN, vitals as above Eyes: PERRL, conjunctivae normal, anicteric sclerae ENMT: external ear and nose normal, oropharynx normal Neck: normal visual inspection Respiratory: normal respiratory effort, lungs clear to auscultation Cardiovascular: Rate/Rhythm: regular rate and + bradycardic (HR 50s) Heart Sounds: + murmur (2/6 systolic mid-sternal murmur) Extremities: no edema Gastrointestinal (Abdomen): normal bowel sounds, soft, nontender, no hepatosplenomegaly Musculoskeletal: no cyanosis or clubbing, extremities motor strength 5/5 Skin: no rashes, warm and dry Neurologic: AAOx3, normal speech. Bilateral UE, LE, and face without sensory or motor deficits. No tremor. Psychiatric: A+Ox3, euthymic affect Principal Diagnosis Heart Palpitations Anxiety Discharge Exam General: A&Ox3. NAD. Cooperative. HEENT: Atraumatic, normocephalic. Pulm: CTAB A&P. -wheezes, -rales, -rhonchi. Symmetrical chest rise. No increase work of breathing. No respiratory distress. Cardiac: RRR, -mrg. Radial pulses intact and symmetrical. Abdominal: soft, non-tender, non-distended, BS x 4 Skin: warm, dry Discharge Data Allergies Allergy/AdvReac Type Severity Reaction Status Date / Time No Known Drug Allergies Allergy Unknown Verified 12/13/20 18:51 Consultations 12/13/20 19:26 ED Decision to Admit Stat 12/13/20 20:02 Consult Cardiology Routine Hospital Course (1) Heart palpitations: 60 yo M PMHx CAD s/p stent, ventricular ectopy, HTN, CKD with baseline creatinine 1.1-1.2, GERD admitted observation for complaints of heart palpitations. Heart palpitations/flushing, Anxiety: -Questionable history of ventricular ectopy, on metoprolol 50 BID. -No complaints of palpitations during hospitalization, though did have palpitations earlier today with associated flushing - EKG without ST/T wave changes and Troponin (-) x2 - Cardiology consulted: no ectopy/arrhythmia on coastal/harbor defense officer or on tele monitor here, palpitations and skin flushing likely due to underlying anxiety -Serum metanephrines and cortisol ordered to rule out pheochromocytoma - Patient started on Zoloft (12.5mg x4 days, 25mg x4 days, 50mg thereafter), was also prescribed Ativan 0.5mg PO to use PRN for palpitations/flushing/panic attacks - f/u with PCP for further eval/management of anxiety, f/u with It Program Manager for further eval/management s/p PCI CAD / HTN / HLD: -S/p stent to LAD on 12/02, Echo that admission with normal LVEF. Patent foramen ovale suspected on that echocardiogram. -Continue metoprolol, valsartan, amlodipine, atorvastatin, aspirin, Plavix. MICAH on CKD, MICAH resolved -Baseline creatinine 1.1-1.3; 1.41 on admission, improved to 1.29 today - suspect pre-renal injury 2/2 dehydration -Given total of 1L NSS bolus in ED GERD: -Continue home pantoprazole. (2) CAD (coronary artery disease): (3) Hyperlipidemia: (4) Hypertension: (5) Chronic kidney disease: (6) H/O heart artery stent: Total Time Total Time Spent Total Time Spent (In Minutes): 40 minutes Total Time Includes: Examination of the Patient, Discharge Planning, Medication Reconciliation and Communication With Other Providers Discharge Plan Discharge Items Patient Disposition: Home - Self-Care Reason For Visit: HEART PALPITATIONS Discharge Diagnosis: Heart Palpitations Condition on Discharge: Good Activity: Per Instructions section Non-emergency contact: Primary Care Provider and It Program Manager Call non-emergency contact if: you have any medication questions and your symptoms worsen Follow-up/Referrals: Niranjan Beltran MD [Primary Care Provider] - Diet: Heart Healthy Addtl Attending Provider Instructions: You were admitted to [facility] on 12/13/2020 for heart palpitations associated with skin flushing. Your symptoms had mostly resolved by the time you arrived at the hospital, and thankfully your EKG was normal and your Troponins were normal as well. Given your history of cardiac stent placement, you were admitted for close telemetry monitoring and Dr. Glover was consulted to determine if any urgent interventions or further acute management are necessary. He reviewed all of your coastal/harbor defense officer history and saw that there were no signs of ectopy or arrhythmias. It is most likely that your palpitations are a component of anxiety. While you also likely have angina (cardiac chest pain) due to your coronary artery disease, it is very likely that anxiety has a large part in bringing on your symptoms. You will be discharged on 12/14/2020 in good, stable condition. You should stop taking Buspirone, and you should start taking another anti-depressant called Zoloft (Sertraline). You should take it as follows, starting tomorrow mornin. 12.5 mg (1/2 tablet) per day for 4 days 2. 25mg (1 tablet) per day for 4 days 3. 50mg (new prescription) per day thereafter Additionally, you were prescribed a strong anti-anxiety medication called Ativan, which is to be used only as needed during the attacks of palpitations and flushing. You should follow up closely with your systems analyst engineer as well as your PCP. Besides for Buspirone, you should continue to take all of your home medications as prescribed. We hope you continue to feel well. Pending Studies at Discharge: No Stand-Alone Forms: My [facility], Smoking Cessation Medications and DC Order Prescriptions: New sertraline [Zoloft] 25 mg tablet 25 mg PO DAILY Qty: 7 RF: 0 sertraline [Zoloft] 50 mg tablet 50 mg PO DAILY Qty: 30 RF: 3 lorazepam [Ativan] 0.5 mg tablet 0.5 mg PO Q8H PRN (Reason: anxiety) Qty: 15 RF: 0 Continued aspirin 81 mg tablet,delayed release (DR/EC) 81 mg PO QAM RF: 0 fluticasone propionate [Flonase Allergy Relief] 50 mcg/actuation spray,suspension 1 sprays INTNAS DAILY PRN (Reason: allergies) RF: 0 valsartan 80 mg tablet 80 mg PO QAM RF: 0 pantoprazole 40 mg tablet,delayed release (DR/EC) 40 mg PO QAM RF: 0 clopidogrel 75 mg Tablet 75 mg PO QAM Qty: 30 RF: 6 atorvastatin 80 mg tablet 80 mg PO QAM Qty: 30 RF: 6 nitroglycerin [Nitrostat] 0.4 mg Tablet, Sublingual 0.4 mg sublingual PRN PRN (Reason: chest pain) Qty: 30 RF: 1 metoprolol tartrate 25 mg Tablet 37.5 mg PO BID Qty: 60 RF: 6 amlodipine 2.5 mg tablet 2.5 mg PO QAM RF: 0 Probiotic 3 billion cell Capsule 3,000 mmu cells PO QAM RF: 0 Discontinued buspirone 5 mg tablet 5 mg PO BID RF: 0 Discharge Orders: Discharge Order (Routine); Ordered 12/14/20 Ordered By: David Menchaca Admission Data Admit Date/Time: 12/13/20 20:02 Attending Provider: Robbi Lester Admit Provider: Erika Winters Primary Care Provider: Niranjan Beltran Other Providers: Shine Glover ; Jeniffer Monaco Other Interventions: Discharge Summary Assessment (RN) Last Done: 12/14/20 13:25 Supervising Physician Co-Signing Physician Notes I also saw the patient concurrent the resident physician and confirmed coronado portions of the history and physical examination. I also discussed the case with the client care consultant. I agree with the impression and plan as noted in the resident documentation. Briefly, patient is a 60yo male with history of hypertension, coronary disease, anxiety, and nonsustained ventricular tachycardia. Patient was admitted overnight after he noted an increase and heart palpitations. The patient is currently on a remote monitor and when the patient had symptoms yesterday, he was in a sinus tachycardia without PVCs. He did have some PVCs yesterday afternoon (not consistent with his symptoms); there were no episodes of ventricular tachycardia. Exam 120/79, 53, 19, 36.9, 97% on room air Alert oriented. No acute distress. Regular rate and rhythm. Lungs clear with nonlabored respirations Extremities without edema Data Hemoglobin 12.3 Sodium 146, potassium 3.7, BUN 17, creatinine 1.29 Troponin I less than 0.015 (twice) Chest x-ray was unremarkable Impression and plan Palpitations (sinus tachycardia) History of nonsustained ventricular tachycardia, although none present on remote monitoring nor doing overnight telemetry in the hospital Coronary artery disease Anxiety Case discussed extensively with patient and Dr. Glover at bedside. With regards to the palpitations, patient has follow-up with Dr. Glover as an outpatient already scheduled for Tuesday. With regards to the anxiety, will discontinue BuSpar and start sertraline. Will use Ativan as a bridge to SSRI efficacy Patient has follow-up with PCP in about 2-1/2 weeks If he has any questions with regards to the anxiety medications, he will reach out to us via the patient portal. Continue other home medications as noted above (with exception of BuSpar). Resident Activity Tracking Resident Involvement: Resident Care Provided Care Provided: Adult Hospital Medicine
== END 2020-12-14 15:21 | disposition home or self-care (01) ==
LOC: ED 17:01 → 2S 17:01 → SUATTDRO 20:02 → 2S 21:53

== ENCOUNTER 2022-02-07 17:12 | Observation (INO) ==
[2022-02-07] MEDS ORDERED: SODIUM CHLORIDE 0.9% 1000ML 1,000 ML IV ONE (17:29)
[2022-02-07] MEDS ORDERED: ONDANSETRON INJ 2 MG/ML 2 ML VIAL IV STA (17:29)
--- NOTE | 2022-02-07 17:41 | Emergency Department Note ---
Impression & Plan Near syncope, Confusion, COVID-19 ED Provider Note NAME: CASPER MIGUEL AGE: 61 SEX: M : 1960 ARRIVES VIA: Ambulance INFORMANT: Patient ED PROVIDER(S): Luis Ortiz DO CHIEF COMPLAINT: near syncope HPI: Patient is a 61-year-old male with a past medical history of palpitations, CAD, nonsustained VT, hypertension, hyperlipidemia, CKD who presents to the ER for period of unresponsiveness. He was sitting at the table eating. He notes his belly felt full. He does have cough, congestion runny nose and a sore throat. His son had COVID 3 weeks ago. Denies any belly pain. No dysuria, urgency, or frequency. No chest pain or shortness of breath. He was sitting there and his noticed that his hands were kind of shaking. He was not responding to them. He does believe that he remembers all this. ROS: See above HPI for pertinent positives & negatives. A total of 10 systems reviewed and were otherwise negative. PAST MEDICAL HISTORY:See Below PAST SURGICAL HISTORY:See Below FAMILY HISTORY:See Below SOCIAL HISTORY:See Below HOME MEDICATIONS:See Below ALLERGIES:See Below VITALS:See Below PHYSICAL EXAMINATION: GENERAL: Sitting up in bed, alert, well appearing, well nourished, no distress, non-toxic EYE EXAM: normal conjunctiva. OROPHARYNX: no exudate, no erythema, lips, buccal mucosa, and tongue normal and mucous membranes are moist NECK: supple, no nuchal rigidity, no adenopathy, non-tender LUNGS: Clear to auscultation. Normal chest wall mechanics HEART: no murmurs, S1 normal and S2 normal ABDOMEN: abdomen soft, non-tender, normo-active bowel sounds, no masses, no rebound or guarding. UPPER EXTREMITIES: upper extremities are grossly normal. LOWER EXTREMITIES: No pitting edema. NEURO EXAM: Normal sensorium, cranial nerves II-XII normal speech, no weakness of arms, no weakness of legs. No drift. Finger to nose intact. Gross sensation intact. MEDICAL DECISION MAKING: Patient is a 61-year-old male who presents ER for the boasting complaint. IV was established blood work was obtained. Labs show no significant leukocytosis or anemia. BMP with a creatinine 1.6 up from baseline of about 1. Glucose was elevated at 175. LFTs bilirubin was unremarkable. Troponin was negative. Patient was completely neurologically intact. CT head was negative. EKG was unremarkable. Based on the history of previous CAD and VT felt was reasonable to observe him overnight. Patient was updated in regards to this. He was agreeable. Discussed with the hospitalist Jinny Monaco for further evaluation. Triage Nursing notes reviewed. Limited review of prior medical records performed Vital Signs: reviewed and remarkable for no significant abnormalities Differential diagnosis: Differential diagnosis includes etiologies such as benign positional vertigo, dehydration, hypovolemia, anemia, tumor, infection, hypoglycemia, electrolyte abnormalities, cardiac sources, intracerebral event, toxicologic, neurological, as well as others were entertained. ER treatment provided: See below Diagnostics interpreted by me: ECG: Sinus rhythm rate 61 Left axis T wave inversion in the septal leads QTC 416 Cardiac Monitoring: An order was placed for continuous cardiac monitoring. The monitor shows a rate of 65 with sinus rhythm. Laboratory studies: As stated above and show below. Imaging studies: CT head was negative Portable AP upright 1 view the chest was unremarkable Consultation(s): Discussed with Carlos Enrique for further evaluation Procedures: none Critical Care: None Past Med/Surg History Medical History (Updated 02/07/22 @ 21:16 by Luis Ortiz DO) CAD (coronary artery disease) h/o stent placement to LAD 12/02/20 Chronic kidney disease Hyperlipidemia Hypertension Non-sustained ventricular tachycardia Surgical History (Updated 02/07/22 @ 21:02 by Jeniffer Monaco DO) H/O heart artery stent 80% blockage LAD, 12/02/20 Family History Denies family history of Kidney disease Social History Smoking Status: Former smoker Second Hand Exposure: No; Hx Alcohol Use: Yes Alcohol type: beer Hx Substance Use: No Preferred Language: Belarusian Communication Ability: Effective Structural Architect Required: No Beliefs That Will Affect Care: None marital status: Current Living Situation: Family Current Living Situation Comment: Moved from [place] to [place] 2018 for longterm & renovate home current occupational status: retired current occupation: retired 2016 from [employer] other: 3 children. One biologic. Two adopted from [facility] Feels Safe at Home: Yes Assistive Devices: Contacts and Glasses Allergies Allergies Allergy/AdvReac Type Severity Reaction Status Date / Time No Known Drug Allergies Allergy Unknown Verified 02/07/22 21:10 Home Meds Home Medications Medication Instructions Recorded Confirmed aspirin 81 mg tablet,delayed 81 mg PO QAM 10/15/19 02/07/22 release fluticasone propionate 50 1 sprays INTNAS DAILY PRN 10/15/19 02/07/22 mcg/actuation nasal spray,suspension (Flonase Allergy Relief) valsartan 80 mg tablet 80 mg PO QAM 10/15/19 02/07/22 amlodipine 5 mg tablet 5 mg PO DAILY 02/07/22 02/07/22 atorvastatin 80 mg tablet 80 mg PO QPM 02/07/22 02/07/22 coQ10 (ubiquinol) 200 mg capsule 200 mg PO DAILY 02/07/22 02/07/22 diphenhydramine HCl 25 mg capsule 25 mg PO HS PRN 02/07/22 02/07/22 (Benadryl) metoprolol tartrate 50 mg tablet 50 mg PO BID 02/07/22 02/07/22 multivitamin 1 tab PO QPM 02/07/22 02/07/22 Previous Rx's Medication Instructions Recorded nitroglycerin 0.4 mg sublingual 0.4 mg SUBLINGUAL PRN PRN #30 tab 12/03/20 tablet (Nitrostat) lorazepam 0.5 mg tablet (Ativan) 0.5 mg PO Q8H PRN #15 tab 12/14/20 sertraline 50 mg tablet (Zoloft) 50 mg PO DAILY #30 tab 12/14/20 Results & Data (ED) Vital Signs Vital Signs - 24 hr 02/07/22 17:04 02/07/22 18:21 02/07/22 19:30 Temperature 37.5 C Temperature Source Oral Pulse Rate 57 L Pulse Rate [Apical] 60 65 60 Respiratory Rate 16 18 18 Respiratory Effort / Characteristics Non-Labored Spontaneous Respiratory Depth Normal Blood Pressure 122/64 Blood Pressure [Left Arm] 122/64 151/74 H 136/70 Blood Pressure Mean 83 Blood Pressure Mean [Left Arm] 83 99 92 Pulse Oximetry 98 98 96 Oxygen Delivery Method Room Air Sepsis Recent Fever Within 48 Hours No Sepsis New/Unexplained Change in Mental Status No Sepsis Action Taken by Nursing No Action Required Laboratory Data Result diagrams: 02/07/22 17:31 02/07/22 17:31 Lab Results 02/07/22 02/07/22 02/07/22 Range/Units 17:31 17:31 17:31 WBC 5.61 (4.8-10.8) K/uL RBC 4.09 L (4.7-6.1) M/uL Hgb 13.3 L (14.0-18.0) g/dL Hct 40.1 L (42-52) % MCV 98.0 (80-100) fL MCH 32.5 (25-34) pg MCHC 33.2 (32-36) g/dL RDW Std Deviation 48.5 H (36.4-46.3) fL RDW Coeff of Aristides 13.5 (11.5-14.5) % Plt Count 180 (130-400) K/uL MPV 10.2 (7.4-10.4) fL Immature Gran % (Auto) 0.2 % Neut % (Auto) 41.6 % Lymph % (Auto) 41.9 % Woodson % (Auto) 11.1 % Eos % (Auto) 5.0 % Baso % (Auto) 0.2 % Neut # (Auto) 2.34 (1.4-6.5) K/uL Lymph # (Auto) 2.35 (1.2-3.4) K/uL Woodson # (Auto) 0.62 H (0.11-0.59) K/uL Eos # (Auto) 0.28 (0-0.5) K/uL Baso # (Auto) 0.01 (0-0.2) K/uL Immature Gran # (Auto) 0.01 (0.00-0.02) K/uL Sodium 136 (136-145) mmol/L Potassium 3.9 (3.5-5.1) mmol/L Chloride 100 (98-107) mmol/L Carbon Dioxide 26 (21-32) mmol/L Anion Gap 10 (3-11) BUN 25 H (6-23) mg/dl Creatinine 1.64 H (0.6-1.4) mg/dl Est Cr Clr Drug Dosing 46.9 ml/min Est GFR ( Amer) 52.3 ml/min Est GFR (Non-Af Amer) 45.1 ml/min BUN/Creatinine Ratio 15.2 (10-20) Glucose 175 H (70-99(Fasting)) mg/dl Calcium 9.1 (8.5-10.1) mg/dl Total Bilirubin 0.6 (0.2-1.0) mg/dl AST 25 (13-39) U/L ALT 23 (7-52) U/L Alkaline Phosphatase 49 (34-104) U/L Troponin I High Sens < 2.3 2.4 (0-20) pg/ml Total Protein 7.4 (6.0-8.3) gm/dl Albumin 4.5 (3.4-5.0) gm/dl Globulin 2.9 (2.5-4.0) gm/dl Albumin/Globulin Ratio 1.6 (0.9-2) Lipase 64 (11-82) U/L SARS-CoV-2, RNA, NAAT (NEGATIVE) 02/07/22 Range/Units 17:34 WBC (4.8-10.8) K/uL RBC (4.7-6.1) M/uL Hgb (14.0-18.0) g/dL Hct (42-52) % MCV (80-100) fL MCH (25-34) pg MCHC (32-36) g/dL RDW Std Deviation (36.4-46.3) fL RDW Coeff of Aristides (11.5-14.5) % Plt Count (130-400) K/uL MPV (7.4-10.4) fL Immature Gran % (Auto) % Neut % (Auto) % Lymph % (Auto) % Woodson % (Auto) % Eos % (Auto) % Baso % (Auto) % Neut # (Auto) (1.4-6.5) K/uL Lymph # (Auto) (1.2-3.4) K/uL Woodson # (Auto) (0.11-0.59) K/uL Eos # (Auto) (0-0.5) K/uL Baso # (Auto) (0-0.2) K/uL Immature Gran # (Auto) (0.00-0.02) K/uL Sodium (136-145) mmol/L Potassium (3.5-5.1) mmol/L Chloride (98-107) mmol/L Carbon Dioxide (21-32) mmol/L Anion Gap (3-11) BUN (6-23) mg/dl Creatinine (0.6-1.4) mg/dl Est Cr Clr Drug Dosing ml/min Est GFR ( Amer) ml/min Est GFR (Non-Af Amer) ml/min BUN/Creatinine Ratio (10-20) Glucose (70-99(Fasting)) mg/dl Calcium (8.5-10.1) mg/dl Total Bilirubin (0.2-1.0) mg/dl AST (13-39) U/L ALT (7-52) U/L Alkaline Phosphatase (34-104) U/L Troponin I High Sens (0-20) pg/ml Total Protein (6.0-8.3) gm/dl Albumin (3.4-5.0) gm/dl Globulin (2.5-4.0) gm/dl Albumin/Globulin Ratio (0.9-2) Lipase (11-82) U/L SARS-CoV-2, RNA, NAAT POSITIVE A* (NEGATIVE) Administered Medications Discontinued Medications Sodium Chloride (Nss 1000ml) 1,000 mls @ 999 mls/hr IV .Q1H1M ONE Stop: 02/07/22 18:29 Last Infusion: 02/07/22 20:28 Dose: 0 mls/hr Documented by: [id number] Admin: 02/07/22 17:39 Dose: 999 mls/hr Documented by: [id number] Ondansetron HCl (Ondansetron Inj 2 Mg/Ml 2 Ml Vial) 4 mg IV NOW STA Stop: 02/07/22 17:30 Last Admin: 02/07/22 17:39 Dose: 4 mg Documented by: [id number] Imaging Data Radiologist's Impression: Chest X-Ray 02/07/22 17:30 XR chest 1V portable CLINICAL HISTORY: Chest Pain. COMPARISON STUDY: 12/13/2020 TECHNIQUE: 1 view of the chest FINDINGS: Single frontal view of the chest demonstrates the cardiomediastinal silhouette to be within normal limits. The lungs are clear of alveolar opacities. There is no evidence for pleural effusion. There is no evidence for vascular congestion. There is no acute osseous pathology. IMPRESSION: 1. No acute cardiopulmonary disease. ACT 112: Negative or not required by law. Electronically signed by: Ajith Singh M.D. 02/07/2022 6:[address] 02/07/22 18:39 CT head/brain wo con CLINICAL HISTORY: confusion COMPARISON STUDY: No previous studies for comparison. CT DOSE: 537.48 mGy.cm TECHNIQUE: Standard CT of the Brain was performed without IV contrast. A dose lowering technique was utilized adhering to the principles of ALARA. FINDINGS: Extraaxial space: There is no evidence for subdural hematoma. There are no extra-axial fluid collections. Ventricles and cisterns: The ventricles are normal in size and configuration. There is no evidence for midline shift or mass effect. Parenchyma: There is no subarachnoid or intraparenchymal hemorrhage. There is no evidence for an acute infarct or cerebral edema. There is homogeneous attenuation of the brain parenchyma. There are no gross mass lesions. Osseous structures: There is no evidence for an acute fracture. The visualized paranasal sinuses are clear. The mastoid air cells are clear bilaterally. Soft tissues: There is no evidence for focal soft tissue swelling. IMPRESSION: 1. No acute intracerebral pathology. ACT 112: Negative or not required by law. Electronically signed by: Ajith Singh M.D. 02/07/2022 7:38 PM Discharge Plan Visit Data Chief Complaint: Syncope (Near Syncope) ED Provider: Luis Ortiz Discharge Problem: Near syncope, Confusion, COVID-19 Forms Stand Alone Forms: My [facility] Prescriptions Prescriptions: No Action aspirin 81 mg tablet,delayed release (DR/EC) 81 mg PO QAM RF: 0 fluticasone propionate [Flonase Allergy Relief] 50 mcg/actuation spray,suspension 1 sprays INTNAS DAILY PRN (Reason: allergies) RF: 0 valsartan 80 mg tablet 80 mg PO QAM RF: 0 nitroglycerin [Nitrostat] 0.4 mg Tablet, Sublingual 0.4 mg sublingual PRN PRN (Reason: chest pain) Qty: 30 RF: 1 sertraline [Zoloft] 50 mg tablet 50 mg PO DAILY Qty: 30 RF: 3 lorazepam [Ativan] 0.5 mg tablet 0.5 mg PO Q8H PRN (Reason: anxiety) Qty: 15 RF: 0 multivitamin Tablet 1 tab PO QPM RF: 0 amlodipine 5 mg tablet 5 mg PO DAILY RF: 0 diphenhydramine HCl [Benadryl] 25 mg Capsule 25 mg PO HS PRN (Reason: Sleep) RF: 0 metoprolol tartrate 50 mg tablet 50 mg PO BID RF: 0 coQ10 (ubiquinol) 200 mg Capsule 200 mg PO DAILY RF: 0 atorvastatin 80 mg tablet 80 mg PO QPM RF: 0 Referrals Referrals: Niranjan Beltran MD [Primary Care Provider] -
[2022-02-07 17:51] LABS: Basophils # (auto) 0.01 K/uL (0-0.2); Basophils % (auto) 0.2 %; Eosinophils # (auto) 0.28 K/uL (0-0.5); Hematocrit (blood only) 40.1 % (42-52); Hemoglobin 13.3 g/dL (14.0-18.0); Immature Granulocytes # (auto) 0.01 K/uL (0.00-0.02); Immature Granulocytes % (auto) 0.2 %; Lymphocytes # (auto) 2.35 K/uL (1.2-3.4); Lymphocytes % (auto) 41.9 %; Mean Corpuscular Hemoglobin 32.5 pg (25-34); Mean Corpuscular Hgb Conc 33.2 g/dL (32-36); Mean Platelet Volume 10.2 fL (7.4-10.4); Monocytes # (auto) 0.62 K/uL (0.11-0.59); Monocytes % (auto) 11.1 %; Neutrophils # (auto) 2.34 K/uL (1.4-6.5); Neutrophils % (auto) 41.6 %; Platelet Count 180 K/uL (130-400); RDW Coefficient of Variation 13.5 % (11.5-14.5); RDW Standard Deviation 48.5 fL (36.4-46.3); Red Blood Count 4.09 M/uL (4.7-6.1); White Blood Count 5.61 K/uL (4.8-10.8)
--- NOTE | 2022-02-07 18:11 | XRay Report ---
XR chest 1V portable CLINICAL HISTORY: Chest Pain. COMPARISON STUDY: 12/13/2020 TECHNIQUE: 1 view of the chest FINDINGS: Single frontal view of the chest demonstrates the cardiomediastinal silhouette to be within normal li mits. The lungs are clear of alveolar opacities. There is no evidence for pleural effusion. There is no evidence for vascular congestion. There is no acute osseous pathology. IMPRESSION: 1. No acute cardiopulmonary disease. ACT 112: Negative or not required by law. Electronically signed by: Ajith Singh M.D. 02/07/2022 6:10 PM
[2022-02-07 18:17] LABS: Albumin Globulin Ratio 1.6 (0.9-2); Albumin Level 4.5 gm/dl (3.4-5.0); BUN Creatinine Ratio 15.2 (10-20); Bilirubin,Total 0.6 mg/dl (0.2-1.0); Calcium 9.1 mg/dl (8.5-10.1); Creatinine Clr Calc Pharmacy 46.9 ml/min; Est GFR (African American) 52.3 ml/min; Est GFR (Non-African American) 45.1 ml/min; Globulin 2.9 gm/dl (2.5-4.0); Potassium 3.9 mmol/L (3.5-5.1); Total Protein 7.4 gm/dl (6.0-8.3)
[2022-02-07 18:22] LABS: Troponin I High Sensitivity 2.4 pg/ml (0-20)
--- NOTE | 2022-02-07 19:39 | CT Scan Report ---
CT head/brain wo con CLINICAL HISTORY: confusion COMPARISON STUDY: No previous studies for comparison. CT DOSE: 537.48 mGy.cm TECHNIQUE: Standard CT of the Brain was performed without IV contrast. A dose lowering technique was utilized adhering to the principles of ALARA. FINDINGS: Extraaxial space: There is no evidence for subdural hematoma. There are no extra-axial fluid collecti ons. Ventricles and cisterns: The ventricles are normal in size and configuration. There is no evidence fo r midline shift or mass effect. Parenchyma: There is no subarachnoid or intraparenchymal hemorrhage. There is no evidence for an acut e infarct or cerebral edema. There is homogeneous attenuation of the brain parenchyma. There are no g ross mass lesions. Osseous structures: There is no evidence for an acute fracture. The visualized paranasal sinuses are clear. The mastoid air cells are clear bilaterally. Soft tissues: There is no evidence for focal soft tissue swelling. IMPRESSION: 1. No acute intracerebral pathology. ACT 112: Negative or not required by law. Electronically signed by: Ajith Singh M.D. 02/07/2022 7:38 PM
--- NOTE | 2022-02-07 21:12 | History & Physical Report ---
Date of Service February 07, 2022 Assessment & Plan (1) Near syncope: Plan: 61yo male with history of HTN, HLP, CAD s/p OR with stent placement to LAD as well as Covid-19 infection presenting with episode of confusion, perioral cyanosis. Ddx to include near-syncope, transient arrhythmia, ?TIA - patient recently stopped his Plavix (5 days ago), seizure -Observation to medical with telemetry -Neuro checks -Check MRI brain (2) CAD (coronary artery disease): Plan: Patient denies chest pain. Troponin x 1 negative. No acute ischemic changes present on EKG -Continue ASA -Continue Atorvastatin -Continue Metoprolol -Continue Valsartan (3) Hyperlipidemia: Plan: Chronic. Stable -Continue Atorvastatin (4) Hypertension: Plan: Chronic. Blood pressure stable -Continue Valsartan -Continue Metoprolol -Continue Amlodipine (5) Chronic kidney disease: Plan: BUN and Cr mildly above baseline -Gentle IVF - LR at 100mL/hr -Repeat chemisty in AM (6) COVID-19: Plan: Patient with sore throat, sinus congestion x 3 days. He has been fully vaccinated and boosted. Saturations adequate on room air -Continue to monitor -Lovenox 40mg daily Plan: F/E/N - LR at 100mL/hr, electrolytes WNL, AHA diet as tolerated Ppx - Lovenox Code - Full Dispo -[facility] History of Present Illness Chief Complaint: near syncope Primary Care Provider: Niranjan Beltran Alonzo Grimaldo is a 61yo male with history of HTN, HLP, CAD s/p OR with stent placement and CKD. Patient presents today after a ?near-syncopal event with associated perioral cyanosis. Patient has had sore throat and sinus congestion and mild cough for the last 3 days. Today he mowed the lawn and sat on the porch for about one hour. This evening he was out at to a [place] restaurant with some friends. He ate his meal and had 2 beers. After dinner everyone was standing up to leave and patient was just sitting in his seat staring at his hands. He was performing a pill-rolling motion with his right hand and shaking with his left hand. When asked if he was alright he took some time to respond then he said "I'm mixing the colors". His also noted some perioral cyanosis at the time. Patient continued to be slightly confused until just recently. Afebrile, HD stable in the ER. NAD. He is POSITIVE for Covid-19. Patient has been fully vaccinated + boosters. His son was POSITIVE approximately 1 month ago. He has been to [place] the last two weekends for concerts. No additional complaints at this time. Patient denies fever, chills, chest pain, palpitations, SOB. He denies abdominal pain, nausea, vomiting, diarrhea or constipation. ER Course: Zofran, NSS x 1 L Allergies Allergy/AdvReac Type Severity Reaction Status Date / Time No Known Drug Allergies Allergy Unknown Verified 02/07/22 21:10 Home Medications Medication Instructions Recorded Confirmed Type aspirin 81 mg tablet,delayed 81 mg PO QAM 10/15/19 02/07/22 History release fluticasone propionate 50 1 sprays INTNAS DAILY PRN 10/15/19 02/07/22 History mcg/actuation nasal spray,suspension (Flonase Allergy Relief) valsartan 80 mg tablet 80 mg PO QAM 10/15/19 02/07/22 History nitroglycerin 0.4 mg sublingual 0.4 mg SUBLINGUAL PRN PRN #30 tab 12/03/20 02/07/22 Rx tablet (Nitrostat) lorazepam 0.5 mg tablet (Ativan) 0.5 mg PO Q8H PRN #15 tab 12/14/20 02/07/22 Rx sertraline 50 mg tablet (Zoloft) 50 mg PO DAILY #30 tab 12/14/20 02/07/22 Rx amlodipine 5 mg tablet 5 mg PO DAILY 02/07/22 02/07/22 History atorvastatin 80 mg tablet 80 mg PO QPM 02/07/22 02/07/22 History coQ10 (ubiquinol) 200 mg capsule 200 mg PO DAILY 02/07/22 02/07/22 History diphenhydramine HCl 25 mg capsule 25 mg PO HS PRN 02/07/22 02/07/22 History (Benadryl) metoprolol tartrate 50 mg tablet 50 mg PO BID 02/07/22 02/07/22 History multivitamin 1 tab PO QPM 02/07/22 02/07/22 History Past Med/Surg History Medical History (Updated 02/07/22 @ 21:16 by Luis Ortiz DO) CAD (coronary artery disease) h/o stent placement to LAD 12/02/20 Chronic kidney disease Hyperlipidemia Hypertension Non-sustained ventricular tachycardia Surgical History (Updated 02/07/22 @ 21:02 by Jeniffer Monaco DO) H/O heart artery stent 80% blockage LAD, 12/02/20 Family History Denies family history of Kidney disease Social History Smoking Status: Former smoker Second Hand Exposure: No; Hx Alcohol Use: Yes Alcohol type: beer Hx Substance Use: No Preferred Language: Mexican Communication Ability: Effective Racing Car Driver Required: No Beliefs That Will Affect Care: None marital status: Current Living Situation: Family Current Living Situation Comment: Moved from [place] to [place] 2018 for correction & renovate home current occupational status: retired current occupation: retired 2017 from [employer] other: 3 children. One biologic. Two adopted from [facility] Feels Safe at Home: Yes Assistive Devices: Contacts and Glasses Review of Systems Review of Systems: All systems reviewed & are unremarkable except as noted in HPI & below Physical Exam Physical Exam: General: patient resting comfortably, NAD, non-toxic in appearance, AA&O x 4 Skin: warm, dry, intact, no rashes or lesions HEENT: NC/AT, PERRL, EOMI, anicteric sclera, conjunctiva without injection, external ear normal to inspection and nontender, nares patent, slightly dry mucus membranes, dentition intact, no oropharyngeal lesions, neck supple, trachea midline, no LAD, no thyromegaly, no JVD Heart: +S1/S2, regular, no m/r/g Lungs: equal air entry bilaterally, no rales/rhonchi/wheezes Abd: +BS, soft, NT/ND, no masses/organomegaly/ascites Ext: warm, 2+ pulses in UE/LE bilaterally, no clubbing/cyanosis or edema Neuro: nonfocal, patient AA&O x 4, speech intact, CN II-XII intact, no facial droop, sensation intact, MS 5/5 in UE/LE bilaterally, moving all extremities on command with equal strength 5/5 Results & Data Results & Data ([facility]) Vital Signs (Past 12 Hours) Vital Signs Temp Pulse Pulse Resp BP BP Pulse Ox 02/07/22 19:30 37.5 C 60 18 136/70 96 02/07/22 18:21 65 18 151/74 H 98 02/07/22 17:04 57 L 60 16 122/64 122/64 98 Laboratory Results Laboratory Results WBC 5.61 K/uL (4.8-10.8) 02/07/22 17:31 RBC 4.09 M/uL (4.7-6.1) L 02/07/22 17:31 Hgb 13.3 g/dL (14.0-18.0) L 02/07/22 17:31 Hct 40.1 % (42-52) L 02/07/22 17:31 MCV 98.0 fL (80-100) 02/07/22 17:31 MCH 32.5 pg (25-34) 02/07/22 17:31 MCHC 33.2 g/dL (32-36) 02/07/22 17:31 RDW Std Deviation 48.5 fL (36.4-46.3) H 02/07/22 17:31 RDW Coeff of Aristides 13.5 % (11.5-14.5) 02/07/22 17:31 Plt Count 180 K/uL (130-400) 02/07/22 17:31 MPV 10.2 fL (7.4-10.4) 02/07/22 17:31 Immature Gran % (Auto) 0.2 % 02/07/22 17:31 Neut % (Auto) 41.6 % 02/07/22 17:31 Lymph % (Auto) 41.9 % 02/07/22 17:31 Day % (Auto) 11.1 % 02/07/22 17:31 Eos % (Auto) 5.0 % 02/07/22 17:31 Baso % (Auto) 0.2 % 02/07/22 17:31 Neut # (Auto) 2.34 K/uL (1.4-6.5) 02/07/22 17:31 Lymph # (Auto) 2.35 K/uL (1.2-3.4) 02/07/22 17:31 Day # (Auto) 0.62 K/uL (0.11-0.59) H 02/07/22 17:31 Eos # (Auto) 0.28 K/uL (0-0.5) 02/07/22 17:31 Baso # (Auto) 0.01 K/uL (0-0.2) 02/07/22 17:31 Immature Gran # (Auto) 0.01 K/uL (0.00-0.02) 02/07/22 17:31 Sodium 136 mmol/L (136-145) 02/07/22 17:31 Potassium 3.9 mmol/L (3.5-5.1) 02/07/22 17:31 Chloride 100 mmol/L (98-107) 02/07/22 17:31 Carbon Dioxide 26 mmol/L (21-32) 02/07/22 17:31 Anion Gap 10 (3-11) 02/07/22 17:31 BUN 25 mg/dl (6-23) H 02/07/22 17:31 Creatinine 1.64 mg/dl (0.6-1.4) H 02/07/22 17:31 Est Cr Clr Drug Dosing 46.9 ml/min 02/07/22 17:31 Est GFR ( Amer) 52.3 ml/min 02/07/22 17:31 Est GFR (Non-Af Amer) 45.1 ml/min 02/07/22 17:31 BUN/Creatinine Ratio 15.2 (10-20) 02/07/22 17:31 Glucose 175 mg/dl (70-99(Fasting)) H 02/07/22 17:31 Calcium 9.1 mg/dl (8.5-10.1) 02/07/22 17:31 Total Bilirubin 0.6 mg/dl (0.2-1.0) 02/07/22 17:31 AST 25 U/L (13-39) 02/07/22 17:31 ALT 23 U/L (7-52) 02/07/22 17:31 Alkaline Phosphatase 49 U/L (34-104) 02/07/22 17:31 Troponin I High Sens 2.4 pg/ml (0-20) 02/07/22 17:31 Troponin I High Sens < 2.3 pg/ml (0-20) 02/07/22 17:31 Total Protein 7.4 gm/dl (6.0-8.3) 02/07/22 17:31 Albumin 4.5 gm/dl (3.4-5.0) 02/07/22 17:31 Globulin 2.9 gm/dl (2.5-4.0) 02/07/22 17:31 Albumin/Globulin Ratio 1.6 (0.9-2) 02/07/22 17:31 Lipase 64 U/L (11-82) 02/07/22 17:31 SARS-CoV-2, RNA, NAAT POSITIVE (NEGATIVE) A* 02/07/22 17:34 Impressions Chest X-Ray 02/07/22 17:30 XR chest 1V portable CLINICAL HISTORY: Chest Pain. COMPARISON STUDY: 12/13/2020 TECHNIQUE: 1 view of the chest FINDINGS: Single frontal view of the chest demonstrates the cardiomediastinal silhouette to be within normal limits. The lungs are clear of alveolar opacities. There is no evidence for pleural effusion. There is no evidence for vascular congestion. There is no acute osseous pathology. IMPRESSION: 1. No acute cardiopulmonary disease. ACT 112: Negative or not required by law. Electronically signed by: Ajith Singh M.D. 02/07/2022 6:[address] 02/07/22 18:39 CT head/brain wo con CLINICAL HISTORY: confusion COMPARISON STUDY: No previous studies for comparison. CT DOSE: 537.48 mGy.cm TECHNIQUE: Standard CT of the Brain was performed without IV contrast. A dose lowering technique was utilized adhering to the principles of ALARA. FINDINGS: Extraaxial space: There is no evidence for subdural hematoma. There are no extra-axial fluid collections. Ventricles and cisterns: The ventricles are normal in size and configuration. There is no evidence for midline shift or mass effect. Parenchyma: There is no subarachnoid or intraparenchymal hemorrhage. There is no evidence for an acute infarct or cerebral edema. There is homogeneous attenua tion of the brain parenchyma. There are no gross mass lesions. Osseous structures: There is no evidence for an acute fracture. The visualized paranasal sinuses are clear. The mastoid air cells are clear bilaterally. Soft tissues: There is no evidence for focal soft tissue swelling. IMPRESSION: 1. No acute intracerebral pathology. ACT 112: Negative or not required by law. Electronically signed by: Ajith Singh M.D. 02/07/2022 7:38 PM ECG Additional Comments: NSR at 61, incomplete RBBB Code Status & VTE Plan VTE Prophylaxis Plan VTE Prophylaxis will be ordered: Yes PG Care Time/CCT Total # of Minutes Spent Total Time Spent with Patient: Total time spent is greater than 50% in coordination of care (as documented) at patient's floor/unit and/or counseling patient: Coding Level of Care Code INT OBSERVATION CARE 70M LVL 3 Diagnoses CAD (coronary artery disease) I25.10 Associated angina: unspecified whether angina present Coronary Disease-Associated Artery/Lesion type: [place] artery [place] vs. transplanted heart: [place] heart Hyperlipidemia E78.5 Hyperlipidemia type: unspecified Hypertension I10 Hypertension type: essential hypertension Chronic kidney disease N18.1 Chronic kidney disease stage: stage 1 COVID-19 U07.1 Near syncope R55 (1) CAD (coronary artery disease) Associated angina: unspecified whether angina present Coronary Disease- Associated Artery/Lesion type: [place] artery [place] vs. transplanted heart: [place] heart Qualified Code(s): I25.10 - Atherosclerotic heart disease of [place] coronary artery without angina pectoris (2) Hyperlipidemia Hyperlipidemia type: unspecified Qualified Code(s): E78.5 - Hyperlipidemia, unspecified (3) Chronic kidney disease Chronic kidney disease stage: stage 1 Qualified Code(s): N18.1 - Chronic kidney disease, stage 1 (4) Hypertension Hypertension type: essential hypertension Qualified Code(s): I10 - Essential (primary) hypertension
[2022-02-07] MEDS ORDERED: ACETAMINOPHEN 325 MG TAB PO PRN (23:00)
[2022-02-07] MEDS ORDERED: ONDANSETRON INJ 2 MG/ML 2 ML VIAL IV PRN (23:00)
[2022-02-07] MEDS ORDERED: LACTATED RINGER'S 1,000 ML IV SCH (23:00)
[2022-02-08] MEDS ORDERED: GADOBUTROL 10ML VIAL IV ONE
[2022-02-08 00:28] LABS: Phosphorus 3.9 mg/dl (2.5-4.9)
[2022-02-08] MEDS: ENOXAPARIN INJ 40 MG/0.4 ML SYR SQ SCH (05:13)
[2022-02-08] MEDS ORDERED: METOPROLOL TARTRATE 50 MG TAB PO SCH (09:00)
[2022-02-08] MEDS: amLODIPine BESYLATE 5 MG TAB PO SCH (10:18)
[2022-02-08] MEDS: ASPIRIN 81 MG ECTAB PO SCH (10:19)
[2022-02-08] MEDS: SERTRALINE HCL 50 MG TABLET PO SCH (10:19)
[2022-02-08] MEDS: VALSARTAN 80 MG TAB PO SCH (10:19)
--- NOTE | 2022-02-08 10:29 | Magnetic Resonance Report ---
MR brain wo/w con HISTORY: 61 years-old Male confusion, acutely altered mental status. COMPARISON: Head CT of same day. TECHNIQUE: Multiplanar multisequence MRI of the brain was obtained both with and without [address] FINDINGS: The apparel patternmaker localizer images demonstrate no gross extracranial abnormality. There is no restricted diff usion to suggest acute or subacute infarct. Partially empty sella. Midline structures are otherwise u nremarkable. No acute intracranial hemorrhage, midline shift, abnormal extra-axial collection, hydroc ephalus or intracranial mass. There is no pathologic blooming artifact on the T2* series. There are n o significant T2/FLAIR signal abnormalities identified within the brain parenchyma. There is no abnormal enhancement. Cerebral venous sinuses and major arterial flow voids appear patent . The mastoid air cells are clear. Mild mucosal thickening of the paranasal sinuses. The skull, orbit s and soft tissues are unremarkable. IMPRESSION: 1. No acute intracranial abnormality. 2. No abnormal enhancement. ACT 112: Negative or not required by law. The above report was generated using voice recognition software. It may contain grammatical, syntax o r spelling errors. Dictated: 02/08/2022 8:14 AM Transcribed: 02/08/2022 10:09 AM Nichole [id number] [email or web address] Electronically signed by: Nando Mancia M.D. 02/08/2022 10:27 AM
--- NOTE | 2022-02-08 14:05 | Electrocardiogram Report ---
Test Reason : Blood Pressure : / mmHG Vent. Rate : 061 BPM Atrial Rate : 061 BPM P-R Int : 170 ms QRS Dur : 100 ms QT Int : 414 ms P-R-T Axes : 042 -25 033 degrees QTc Int : 416 ms Normal sinus rhythm Incomplete right bundle branch block Borderline ECG When compared with ECG of 14-DEC-2020 04:26, QRS axis Shifted left Nonspecific T wave abnormality, improved in Inferior leads Nonspecific T wave abnormality now evident in Anterior leads Nonspecific T wave abnormality no longer evident in Lateral leads Confirmed by Dougie Jones ([id number]) on 02/08/2022 2:05:19 PM Referred By: REFERRED SELF Confirmed By:Dougie Jones
[2022-02-08 16:11] LABS: Hematocrit (blood only) 38.2 % (42-52); Hemoglobin 12.6 g/dL (14.0-18.0); Mean Corpuscular Hemoglobin 31.9 pg (25-34); Mean Corpuscular Volume 96.7 fL (80-100); Mean Platelet Volume 10.1 fL (7.4-10.4); Platelet Count 170 K/uL (130-400); RDW Coefficient of Variation 13.4 % (11.5-14.5); RDW Standard Deviation 47.7 fL (36.4-46.3); Red Blood Count 3.95 M/uL (4.7-6.1); White Blood Count 3.97 K/uL (4.8-10.8)
[2022-02-08 16:47] LABS: BUN Creatinine Ratio 11.9 (10-20); Creatinine Clr Calc Pharmacy 43.7 ml/min; Est GFR (Non-African American) 41.4 ml/min; Potassium 4.1 mmol/L (3.5-5.1)
[2022-02-08] MEDS: LACTATED RINGER'S 1,000 ML IV SCH (18:35)
[2022-02-08] MEDS ORDERED: METOPROLOL TARTRATE 25 MG TAB PO ONE (20:03)
[2022-02-08] MEDS: PSYLLIUM or GUAR GUM FIBER POWDER PACKET PO SCH (20:47)
[2022-02-08] MEDS ORDERED: ATORVASTATIN 40 MG TAB PO SCH (21:00)
--- NOTE | 2022-02-08 22:02 | Hospitalist Progress Note ---
Date of Service February 08, 2022 Assessment & Plan (1) Near syncope: Plan: 61yo male with history of HTN, HLP, CAD s/p [place] with stent placement to LAD as well as Covid-19 infection presenting with episode of confusion, perioral cyanosis. Ddx to include near-syncope, transient arrhythmia, ?TIA - patient recently stopped his Plavix (5 days ago), seizure -Observation to medical with telemetry -Neuro checks -MRI brain was negative Likely his fogginess and intermittent confusion may have been caused by COVID. This could have been multifactorial from bradycardia, COVID and his kika. (2) CAD (coronary artery disease): Plan: Patient denies chest pain. Troponin x 1 negative. No acute ischemic changes present on EKG -Continue ASA -Continue Atorvastatin -Continue Metoprolol -Continue Valsartan (3) Hyperlipidemia: Plan: Chronic. Stable -Continue Atorvastatin (4) Hypertension: Plan: Chronic. Blood pressure stable -Continue Valsartan -Continue Metoprolol -Continue Amlodipine (5) Chronic kidney disease: Plan: acute on chronic kidney disease stage II BUN and Cr mildly above baseline -resume IVF, monitor in AM. -will discuss with nephro. (6) COVID-19: Plan: Patient with sore throat, sinus congestion x 3 days. He has been fully vaccinated and boosted. Saturations adequate on room air -Continue to monitor -Lovenox 40mg daily Plan: F/E/N - LR at 100mL/hr, electrolytes WNL, AHA diet as tolerated Ppx - Lovenox Code - Full Dispo -[facility] Admission and Anticipated Discharge Date Admission Date: February 07, 2022 Subjective Patient reports that for the past 24 hours, his brain fog has improved. Review of Systems Review of Systems: All systems reviewed & are unremarkable except as noted in HPI & below Physical Exam Physical Exam: General: patient resting comfortably, NAD, non-toxic in appearance, AA&O x 4 Skin: warm, dry, intact, no rashes or lesions HEENT: NC/AT, Heart: +S1/S2, regular, no m/r/g Lungs: equal air entry bilaterally, no rales/rhonchi/wheezes Abd: +BS, soft, NT/ND, no masses/organomegaly/ascites Ext: warm, 2+ pulses in UE/LE bilaterally, no clubbing/cyanosis or edema Neuro: nonfocal, patient AA&O x 4, speech intact Results & Data Results & Data ([facility]) Vital Signs (Past 12 Hours) Vital Signs Temp Pulse Pulse Resp BP Pulse Ox 02/08/22 20:46 56 L 136/74 02/08/22 19:19 36.7 C 55 L 16 133/79 96 02/08/22 16:03 45 L 02/08/22 14:55 36.8 C 57 L 18 123/67 96 02/08/22 11:28 36.9 C 60 18 144/79 H 98 PG Care Time/CCT Total # of Minutes Spent Total Time Spent with Patient: Total time spent is greater than 50% in coordination of care (as documented) at patient's floor/unit and/or counseling patient: Coding Level of Care Code 32072 Subseq Obs Care Lvl 3 Diagnoses Near syncope R55 CAD (coronary artery disease) I25.10 Coronary Disease-Associated Artery/Lesion type: [place] artery [place] vs. transplanted heart: [place] heart Associated angina: unspecified whether angina present Hyperlipidemia E78.5 Hyperlipidemia type: unspecified Hypertension I10 Hypertension type: essential hypertension Chronic kidney disease N18.1 Chronic kidney disease stage: stage 1 COVID-19 U07.1 Time Spent (min) 55 (1) CAD (coronary artery disease) Coronary Disease-Associated Artery/Lesion type: [place] artery [place] vs. transplanted heart: [place] heart Associated angina: unspecified whether angina present Qualified Code(s): I25.10 - Atherosclerotic heart disease of [place] coronary artery without angina pectoris (2) Hyperlipidemia Hyperlipidemia type: unspecified Qualified Code(s): E78.5 - Hyperlipidemia, unspecified (3) Hypertension Hypertension type: essential hypertension Qualified Code(s): I10 - Essential (primary) hypertension (4) Chronic kidney disease Chronic kidney disease stage: stage 1 Qualified Code(s): N18.1 - Chronic kidney disease, stage 1
[2022-02-09] MEDS: ENOXAPARIN INJ 40 MG/0.4 ML SYR SQ SCH (05:29)
[2022-02-09] MEDS: LACTATED RINGER'S 1,000 ML IV SCH (05:29)
[2022-02-09] MEDS: VALSARTAN 80 MG TAB PO SCH (08:03)
[2022-02-09] MEDS: SERTRALINE HCL 50 MG TABLET PO SCH (08:03)
[2022-02-09] MEDS: ASPIRIN 81 MG ECTAB PO SCH (08:03)
[2022-02-09] MEDS: amLODIPine BESYLATE 5 MG TAB PO SCH (08:04)
[2022-02-09] MEDS: PSYLLIUM or GUAR GUM FIBER POWDER PACKET PO SCH (08:06)
[2022-02-09 08:37] LABS: Hematocrit (blood only) 40.9 % (42-52); Hemoglobin 13.5 g/dL (14.0-18.0); Mean Corpuscular Hemoglobin 31.4 pg (25-34); Mean Corpuscular Volume 95.1 fL (80-100); Mean Platelet Volume 10.4 fL (7.4-10.4); Platelet Count 171 K/uL (130-400); RDW Coefficient of Variation 13.5 % (11.5-14.5); RDW Standard Deviation 47.1 fL (36.4-46.3); White Blood Count 3.71 K/uL (4.8-10.8)
--- NOTE | 2022-02-09 08:47 | Cardiology Consultation ---
Date of Consultation February 09, 2022 Assessment & Plan (1) COVID-19: IMPRESSION: 1. Altered mental status due to COVID 19 infection 2. MICAH 3. Coronary artery disease, status post angioplasty and stenting of the LAD diagonal and the first diagonal with balloon angioplasty of the diagonal and stenting of the LAD 12/09/20; chronic total occlusion of the circumflex. 4. Nonsustained VT and frequent PVCs with ischemia and angina resolved with beta blockers. a. Preserved left ventricular systolic function with basal to mid-inferior and basal inferoseptal wall motion abnormalities with an EF in the range of 60- 65% (06/2021). 5. Chronic kidney disease with a baseline creatinine now of 1.3. 6. GERD. 7. Hyperlipidemia. 8. Hypertension. Mr. Grimaldo is feeling much better. His MRI did not reveal any acute process or CVA. It is less likely that his AMS was caused by a cardiac event. His troponins remained normal. He did not have any angina. He may have had some orthostasis due to his illness and he did appear dry on lab work at admission. His MICAH has resolved. His heart rate is running in the 40s. He generally runs bradycardic. He will decrease metoprolol hs to 25 mg bid. He does have a history of Vtach prior to his stents and will have to let us know if he has any palpitations with this reduction. If his heart rate comes up as he recovers from his infection, he can go back to the 50 mg bid. He can be discharged from a cardiac perspective History of Present Illness Attending Physician: Kirill Tillman History of Present Illness Mr. Grimaldo presented to the ED 02/07 after an episode of altered mental status. He was getting up from lunch with his family and felt a cold sweat and confusion. His noticed his lips were blue. He was performing a pill rolling behavior with one hand and speaking about nonsense. No loc, no amnesia surrounding the event, no dizziness. He felt anxious afterward. He was able to walk out to the ambulance. Since the arriving at the hospital he has not had a recurrence. He feels that his brain fog has resolved. He had mile URI symptoms prior and has been diagnosed with COVID. No palpitations. No sob. No chest pain. He is feeling much better today overall. Our discussion took place over the phone due to his COVID 19 infection. Allergies Allergy/AdvReac Type Severity Reaction Status Date / Time No Known Drug Allergies Allergy Unknown Verified 02/07/22 21:10 Home Medications Medication Instructions Recorded Confirmed Type aspirin 81 mg tablet,delayed 81 mg PO QAM 10/15/19 02/07/22 History release fluticasone propionate 50 1 sprays INTNAS DAILY PRN 10/15/19 02/07/22 History mcg/actuation nasal spray,suspension (Flonase Allergy Relief) valsartan 80 mg tablet 80 mg PO QAM 10/15/19 02/07/22 History nitroglycerin 0.4 mg sublingual 0.4 mg SUBLINGUAL PRN PRN #30 tab 12/03/20 02/07/22 Rx tablet (Nitrostat) lorazepam 0.5 mg tablet (Ativan) 0.5 mg PO Q8H PRN #15 tab 12/14/20 02/07/22 Rx sertraline 50 mg tablet (Zoloft) 50 mg PO DAILY #30 tab 12/14/20 02/07/22 Rx amlodipine 5 mg tablet 5 mg PO DAILY 02/07/22 02/07/22 History atorvastatin 80 mg tablet 80 mg PO QPM 02/07/22 02/07/22 History coQ10 (ubiquinol) 200 mg capsule 200 mg PO DAILY 02/07/22 02/07/22 History diphenhydramine HCl 25 mg capsule 25 mg PO HS PRN 02/07/22 02/07/22 History (Benadryl) metoprolol tartrate 50 mg tablet 50 mg PO BID 02/07/22 02/07/22 History multivitamin 1 tab PO QPM 02/07/22 02/07/22 History Patient History Medical History CAD (coronary artery disease) h/o stent placement to LAD 12/02/20 Chronic kidney disease Hyperlipidemia Hypertension Non-sustained ventricular tachycardia Surgical History H/O heart artery stent 80% blockage LAD, 12/02/20 Family History Denies family history of Kidney disease Social History Smoking Status: Never smoker Second Hand Exposure: No; Do You Dip or Chew Tobacco: No; Tobacco Cessation Education Requested by Patient: No Hx Alcohol Use: Yes Alcohol type: beer Hx Substance Use: No Preferred Language: Estonian Communication Ability: Effective Production Helper Required: No Beliefs That Will Affect Care: None marital status: Current Living Situation: Spouse and Family Current Living Situation Comment: Lives w/ spouse and three kids current occupational status: retired current occupation: retired 2017 from [employer] Other Information That Helps Us Care for You: No other: 3 children. One biologic. Two adopted from [facility] Feels Safe at Home: Yes Safety Concerns: Feels Safe At This Time Assistive Devices: None Review of Systems Review of Systems: All systems reviewed & are unremarkable except as noted in HPI & below Physical Exam Physical Exam: deferred due to COVID 19 infection Results & Data ([facility]) Vital Signs (Past 12 Hours) Vital Signs Pulse Pulse Resp BP Pulse Ox 02/09/22 08:17 48 L 16 158/83 H 98 02/09/22 07:15 43 L 02/08/22 22:17 45 L 02/08/22 20:46 56 L 136/74
[2022-02-09] MEDS ORDERED: METOPROLOL TARTRATE 25 MG TAB PO SCH ×2 (09:00→10:45)
[2022-02-09 09:10] LABS: Alanine Aminotransferase 18 U/L (7-52); Albumin Level 4.1 gm/dl (3.4-5.0); Alkaline Phosphatase 42 U/L (34-104); Anion Gap 4 (3-11); Aspartate Aminotransferase 19 U/L (13-39); BUN Creatinine Ratio 16.5 (10-20); Bilirubin,Total 0.8 mg/dl (0.2-1.0); Blood Urea Nitrogen 19 mg/dl (6-23); C Reactive Protein < 0.50 mg/dl (0-0.5); Calcium 9.3 mg/dl (8.5-10.1); Carbon Dioxide 33 mmol/L (21-32); Chloride 105 mmol/L (98-107); Creatinine Clr Calc Pharmacy 66.9 ml/min; Est GFR (African American) 80.3 ml/min; Est GFR (Non-African American) 69.3 ml/min; Glucose 89 mg/dl (70-99(Fasting)); Potassium 4.3 mmol/L (3.5-5.1); Sodium 142 mmol/L (136-145)
--- NOTE | 2022-02-10 08:02 | Discharge Summary ---
Date of Service February 09, 2022 Admission HPI Per Admitting Provider Alonzo Grimaldo is a 61yo male with history of HTN, HLP, CAD s/p MD with stent placement and CKD. Patient presents today after a ?near-syncopal event with associated perioral cyanosis. Patient has had sore throat and sinus congestion and mild cough for the last 3 days. Today he mowed the lawn and sat on the porch for about one hour. This evening he was out at to a [place] restaurant with some friends. He ate his meal and had 2 beers. After dinner everyone was standing up to leave and patient was just sitting in his seat staring at his hands. He was performing a pill-rolling motion with his right hand and shaking with his left hand. When asked if he was alright he took some time to respond then he said "I'm mixing the colors". His also noted some perioral cyanosis at the time. Patient continued to be slightly confused until just recently. Afebrile, HD stable in the ER. NAD. He is POSITIVE for Covid-19. Patient has been fully vaccinated + boosters. His son was POSITIVE approximately 1 month ago. He has been to [place] the last two weekends for concerts. No additional complaints at this time. Patient denies fever, chills, chest pain, palpitations, SOB. He denies abdominal pain, nausea, vomiting, diarrhea or constipation. ER Course: Zofran, NSS x 1 L Principal Diagnosis COVID Discharge Exam General: patient resting comfortably, NAD, non-toxic in appearance, AA&O x 4 Skin: warm, dry, intact, no rashes or lesions HEENT: NC/AT, Heart: +S1/S2, regular, no m/r/g Lungs: equal air entry bilaterally, no rales/rhonchi/wheezes Abd: +BS, soft, NT/ND, no masses/organomegaly/ascites Ext: warm, 2+ pulses in UE/LE bilaterally, no clubbing/cyanosis or edema Neuro: nonfocal, patient AA&O x 4, speech intact Discharge Data Allergies Allergy/AdvReac Type Severity Reaction Status Date / Time No Known Drug Allergies Allergy Unknown Verified 02/07/22 21:10 Consultations 02/07/22 19:43 ED Decision to Admit Stat 02/08/22 22:02 Consult Cardiology Routine Ordered Studies 02/07/22 18:39 CT head/brain wo con Stat 02/07/22 23:00 MR brain wo/w con Routine Hospital Course (1) Near syncope: 61yo male with history of HTN, HLP, CAD s/p MD with stent placement to LAD as well as Covid-19 infection presenting with episode of confusion, perioral cyanosis. Ddx to include near-syncope, transient arrhythmia, ?TIA - patient recently stopped his Plavix (5 days ago), seizure -Observation to medical with telemetry -Neuro checks -MRI brain was negative Metabolic encephalopathy Likely his fogginess and intermittent confusion may have been caused by COVID. This could have been multifactorial from bradycardia, COVID and his kika. WILL CUT BACK HIS BETA DEION. (2) CAD (coronary artery disease): Patient denies chest pain. Troponin x 1 negative. No acute ischemic changes present on EKG -Continue ASA -Continue Atorvastatin -Continue Metoprolol -Continue Valsartan (3) Hyperlipidemia: Chronic. Stable -Continue Atorvastatin (4) Hypertension: Chronic. Blood pressure stable -Continue Valsartan -Continue Metoprolol -Continue Amlodipine (5) Chronic kidney disease: acute on chronic kidney disease stage II BUN and Cr mildly above baseline -resume IVF, monitor in AM. -will discuss with nephro. (6) COVID-19: Patient with sore throat, sinus congestion x 3 days. He has been fully vaccinated and boosted. Saturations adequate on room air -Continue to monitor -Lovenox 40mg daily F/E/N - LR at 100mL/hr, electrolytes WNL, AHA diet as tolerated Ppx - Lovenox Code - Full Dispo -[facility] Discharge Plan Discharge Items Patient Disposition: Home - Self-Care Reason For Visit: UNRESPONSIVENESS, COVID Discharge Diagnosis: unresponsiveness COVID Activity: Resume your previous activity Non-emergency contact: Primary Care Provider Call non-emergency contact if: you have any medication questions Follow-up/Referrals: Niranjan Beltran MD [Primary Care Provider] - (PLEASE CALL YOUR PRIMARY CARE PROVIDER TO SCHEDULE A DISCHARGE FOLLOW-UP APPOINTMENT WITHIN 7-10 DAYS.) Diet: Heart Healthy Addtl Attending Provider Instructions: Good afternoon Mr. Grimaldo, You were found to have transient confusion with blue lips.. Thankfully, when you arrived to the hospital the confusion subsided. Your oxygen levels were also normal. We did diagnose you with COVID 19 and these symptoms could have been explained by COVID. You also had acute kidney injury which could have been precipitated by COVID. Your kidney numbers did improve on day of discharge which is fantastic news. In regards to your Heart Rate, this was low, but I understand this is your norm. I discussed with Rosemary Chou who works closely with Dr. Glover. We will cut back your metoprolol to 25 mg twice a day. However, if your Heart Rate increases, you medication can be titrated back to 50 mg twice a day. Will defer this to change to Dr. Glover though. Please keep him in the loop. Recommend followup with PCP in 1-2 weeks. Recommend followup with Dr. Glover in 2-4 weeks. Talking about COVID 19, you are most infectious within the first 5 days of the symptoms. It appears you are on day 7 of your symptoms. Given how your symptoms have improved, you likely are no longer contagious. Some recommendations state to quarantine until day 10 however. Will leave this at your discretion. If you want to be extra cautious, wear a mask for the next 3 days to help limit spread when out in public. It was a pleasure to meet you and take care of you during this brief hospital stay. And I am glad your numbers improved. Best regards, Kirill Tillman Pending Studies at Discharge: No Stand-Alone Forms: My [facility], Smoking Cessation Medications and DC Order Prescriptions: Continued aspirin 81 mg tablet,delayed release (DR/EC) 81 mg PO QAM RF: 0 fluticasone propionate [Flonase Allergy Relief] 50 mcg/actuation spray,suspension 1 sprays INTNAS DAILY PRN (Reason: allergies) RF: 0 valsartan 80 mg tablet 80 mg PO QAM RF: 0 nitroglycerin [Nitrostat] 0.4 mg Tablet, Sublingual 0.4 mg sublingual PRN PRN (Reason: chest pain) Qty: 30 RF: 1 sertraline [Zoloft] 50 mg tablet 50 mg PO DAILY Qty: 30 RF: 3 lorazepam [Ativan] 0.5 mg tablet 0.5 mg PO Q8H PRN (Reason: anxiety) Qty: 15 RF: 0 multivitamin Tablet 1 tab PO QPM RF: 0 amlodipine 5 mg tablet 5 mg PO DAILY RF: 0 diphenhydramine HCl [Benadryl] 25 mg Capsule 25 mg PO HS PRN (Reason: Sleep) RF: 0 coQ10 (ubiquinol) 200 mg Capsule 200 mg PO DAILY RF: 0 atorvastatin 80 mg tablet 80 mg PO QPM RF: 0 Changed metoprolol tartrate 50 mg tablet 25 mg PO BID Qty: 0 RF: 0 Discharge Orders: Discharge Order (Routine); Ordered 02/09/22 Ordered By: Kirill Ward/Other Patient Handouts: COVID-19 Home Care Admission Data Admit Date/Time: 02/07/22 21:20 Attending Provider: Kirill Tillman Admit Provider: Jeniffer Monaco Primary Care Provider: Niranjan Beltran Other Providers: Jeniffer Monaco ; Shine Glover Other Interventions: Discharge Summary Assessment (RN) Last Done: 02/09/22 12:26 Coding Diagnoses Near syncope R55 CAD (coronary artery disease) I25.10 Associated angina: unspecified whether angina present Coronary Disease-Associated Artery/Lesion type: [place] artery [place] vs. transplanted heart: [place] heart Hyperlipidemia E78.5 Hyperlipidemia type: unspecified Hypertension I10 Hypertension type: essential hypertension Chronic kidney disease N18.1 Chronic kidney disease stage: stage 1 COVID-19 U07.1
== END 2022-02-09 13:50 | disposition home or self-care (01) ==
LOC: ED 17:12 → SUATTDRO 20:36 → INTOOBSV 20:36 → 2N 20:36